=== PATIENT | female | born 1945 | race Caucasian/White ===

== ENCOUNTER 2016-08-24 10:21 | Inpatient (IN) | payer BC, MEDICARE ==
--- NOTE | 2016-08-24 10:52 | EDM.PDOC ---
ED HPI NEURO - General Chief Complaint: Neurological Problem Stated Complaint: BLACKED OUT Time Seen by Provider: 08/24/16 10:51 Source of Information: Reports: Patient, Family History Limitations: Reports: No limitations - History of Present Illness INITIAL COMMENTS - FREE TEXT/NARRATIVE: 71-year-old female presents to the ED per family members. They were lasting contact with her about 1500 hours on Sunday, August 22. Phone calls yesterday and last night received no answer. He attended her home this morning and found her wedged between the dresser and the wall in a vary small space at which she was unable to get out of. It's unclear how long she may have been restrained or constrained within this area. She didn't recognize her daughters or granddaughter this morning when they arrive to help her out. She had lost control of her bladder her least her depends was wet but no stool. She's covered with bruises particularly her back in right upper chest remedied. No obvious injuries to her head. Patient has no recollection is what is happened to her when she may have fallen or passed out. She is nondiabetic. Bedside glucose is 127. She does appear to be volume depleted. She obeys all commands at this point time in all limbs are functioning normally with no sign of focal neurological deficit. Symptom Onset Date: 08/22/16 (Unclear but seems and seems to be something happened after 1500 hours August 22.) Timing/Duration: Reports: Hour(s):, Unsure Location (Neuro Complaint): Reports: other (No focal neurological deficit.) Quality (Neuro Complaint): Reports: weakness, altered gait. Denies: numbness, tingling, altered sensation (Can hardly weight bear because of pain in her hips. ), altered speech Severity: moderate Improves with: Reports: None Worsens with: Reports: None Context, General: Reports: Trauma (Unclear which maybe 8 or drank last.). Denies: Activity, Exercise, Lifting, Sick contact Associated Symptoms: Reports: confusion, weakness, malaise, rash (Bruises and abrasions.). 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: Other (see below) (No) - Related Data Allergies/ADRs: Allergies Allergy/AdvReac Type Severity Reaction Status Date / Time No Known Allergies Allergy Verified 08/24/16 10:35 Home Meds: Home Meds Hydrochlorothiazide 12.5 mg PO DAILY 09/09/14 [History] Sertraline [Zoloft] 50 mg PO DAILY 09/09/14 [History] Simvastatin [Zocor] 5 mg PO BEDTIME 09/09/14 [History] Past Medical History Cardiovascular History: Reports: High cholesterol, Hypertension Psychiatric History: Reports: Anxiety, Depression - Past Surgical History HEENT Surgical History: Reports: Cataract surgery Female Surgical History: Reports: section Social & Family History - Tobacco Use Smoking Status *Q: Never Smoker Second Hand Smoke Exposure: No - Alcohol Use Days Per Week of Alcohol Use: 0 - Recreational Drug Use Recreational Drug Use: No - Living Situation & Occupation Living situation: Reports: , alone Occupation: retired ED ROS GENERAL - Review of Systems Review Of Systems: See Below Constitutional: Reports: weakness, fatigue. Denies: fever, chills, malaise, weight loss HEENT: Reports: No symptoms Respiratory: Reports: No Symptoms Cardiovascular: Reports: No symptoms Endocrine: Reports: no symptoms GI/Abdominal: Reports: No symptoms : Reports: frequency Musculoskeletal: Reports: back pain, joint pain (Hip pain and knee pain. Also pain in her left shoulder.) Skin: Reports: bruising (Multiple bruises particularly right elbow right proximal lateral humerus upper mid right back left shoulder posteriorly. Right lateral thigh proximally. With abrasions and contusions compatible with a fall in a closed area.) Neurological: Reports: Confusion, Dizziness (She is orthostatic on examination) , Difficulty Walking, Weakness, Gait Disturbance (Doesn't walk as well as normal today since the her family rescued her from her fall.). Denies: Headache , Paresthesia, Pre-Existing Deficit, Seizure, Syncope, Tremors, Trouble Speaking , Change in Speech Psychiatric: Reports: Anxiety, Depression Hematologic/Lymphatic: Reports: no symptoms Immunologic: Reports: no symptoms ED EXAM, NEURO - Physical Exam Exam: See Below Exam Limited By: Other (At present she is not exhibiting any focal neurological deficit. She obeys all commands. She just has an absence of what has happened to her how long she was stopped in between a dresser in the wall. Peers as she may have suffered a prolonged period of unresponsiveness from a fall.) General Appearance: alert, mild distress, other (She has multiple bruises and abrasions to her back and shift posterior shoulders right arm right leg compatible with a fall in enclosed space.) Eye Exam: bilateral eye: normal inspection Ears: normal TMs Throat/Mouth: Other (Tongue is very dry and coated.) Head Exam: atraumatic, normocephalic, other (No palpable hematomas or bruises to the head or neck or scalp or face.) Neck: normal inspection, supple, non-tender, full range of motion, other. No: lymphadenopathy (L), lymphadenopathy (R) Respiratory/Chest: no respiratory distress, lungs clear, normal breath sounds, no accessory muscle use, other (Impression of her ribs causes no pain or discomfort.) Cardiovascular: normal peripheral pulses, regular rate, rhythm, no edema, no gallop, no murmur, no rub GI/Abdominal: normal bowel sounds, soft, non tender, no organomegaly Neurological: alert, normal mood/affect, normal dorsiflexion, CN II-XII intact, difficulty walking (Due to pain in her hips and knees.). No: normal gait, oriented x 3 (Not oriented to time.), Babinski, straight leg raise (L), straight leg raise (R), saddle anesthesia DTR: 0: achilles (R), achilles (L), 1+: patella (R), patella (L) Back Exam: other (Large abrasion contusion and erythema on the right mid back over the distal aspect of the shoulder blade. There is a bruise on the posterior aspect of the left shoulder which appears to be a day or 2 old.) Extremities: other (Bruising right proximal humerus laterally and along her right elbow. Abrasion along the right posterior proximal lateral thigh.) Psychiatric: normal affect, normal mood Skin Exam: Warm, Dry, Intact, Normal color, No rash EKG INTERPRETATION EKG Date: 08/24/16 Time: 11:00 Rhythm: NSR Rate (beats/min): 74 [place]: LAD-left axis deviation (Findings 3.) P-wave: present QRS: normal ST-T: normal QT: prolonged (Minimally prolonged.) EKG Interpretation Comments: No signs of ischemia. Course - Vital Signs Last Recorded V/S: Last Vital Signs Temp 37.2 C 08/24/16 10:31 Pulse 78 08/24/16 10:31 Resp 16 08/24/16 10:31 BP 115/92 H 08/24/16 10:31 Pulse Ox 98 08/24/16 10:31 Orthostatic Blood Pressure [ 101/52 Standing] Orthostatic Blood Pressure [ 124/99 Sitting] Orthostatic Blood Pressure [ 124/64 Supine] - Orders/Labs/Meds Orders: Active Orders 24 hr Category Date Time Status Admission Status [Patient Status] [ADT] Routine ADT 08/24/16 13:15 Active Blood Glucose Check, Bedside [RC] ONETIME Care 08/24/16 10:49 Active EKG Documentation Completion [RC] STAT Care 08/24/16 10:48 Active Orthostatic Vital Signs [RC] ASDIRECTED Care 08/24/16 10:49 Active Oxygen Therapy [RC] ASDIRECTED Care 08/24/16 10:49 Active Chest 1V Frontal [CR] Stat Exams 08/24/16 10:48 Taken CULTURE BLOOD [BC] Stat Lab 08/24/16 11:40 Received CULTURE BLOOD [BC] Stat Lab 08/24/16 12:05 Received Dextrose 5%-0.9% NaCl [Dextrose 5%-Normal Saline] 1,000 Med 08/24/16 11:00 Active ml IV ASDIRECTED Blood Culture x2 Reflex Set [OM.PC] Stat Oth 08/24/16 10:49 Ordered Medication Orders Dextrose/Sodium Chloride (Dextrose 5%-Normal Saline) 1,000 mls @ 999 mls/hr IV ASDIRECTED FRANKLIN Last Admin: 08/24/16 11:00 Dose: 999 mls/hr Labs: Laboratory Tests 08/24/16 08/24/16 08/24/16 Range/Units 11:00 11:00 11:00 WBC 12.37 H (3.98-10.04) K/mm3 RBC 5.05 (3.98-5.22) M/mm3 Hgb 14.6 (11.2-15.7) gm/L Hct 44.4 (34.1-44.9) % MCV 87.9 (79.4-94.8) fl MCH 28.9 (25.6-32.2) pg MCHC 32.9 (32.2-35.5) g/dl RDW Std Deviation 45.3 (36.4-46.3) fL Plt Count 316 (182-369) K/mm3 MPV 10.2 (9.4-12.3) fl Neutrophils % (Manual) 67 H (40-60) % Band Neutrophils % 1 (0-10) % Lymphocytes % (Manual) 22 (20-40) % Atypical Lymphs % 0 % Monocytes % (Manual) 10 (2-10) % Eosinophils % (Manual) 0 L (0.7-5.8) % Basophils % (Manual) 0 L (0.1-1.2) Platelet Estimate Adequate RBC Morph Comment Normal PT 10.8 (8.0-13.0) SECONDS INR 0.99 Sodium 138 (136-145) mEq/L Potassium 3.9 (3.5-5.1) mEq/L Chloride 101 (98-107) mEq/L Carbon Dioxide 26 (21-32) mEq/L Anion Gap 14.9 (5-15) BUN 28 H (7-18) mg/dL Creatinine 1.1 H (0.55-1.02) mg/dL Est Cr Clr Drug Dosing 33.21 mL/min Estimated GFR (MDRD) 49 (>60) mL/min BUN/Creatinine Ratio 25.5 H (14-18) Glucose 133 H (83-115) mg/dL Calcium 9.3 (8.5-10.1) mg/dL Magnesium 2.1 (1.8-2.4) mg/dl Total Bilirubin 0.7 (0.2-1.0) mg/dL AST 127 H (15-37) U/L ALT 58 (14-59) U/L Alkaline Phosphatase 70 (46-116) U/L Creatine Kinase 4045 H (26-192) U/L CK-MB (CK-2) 22.8 H (0-3.6) ng/ml Troponin I < 0.017 (0.00-0.056) ng/mL C-Reactive Protein 5.9 H* (<1.0) mg/dL B-Natriuretic Peptide (0-100) pg/mL Total Protein 8.6 H (6.4-8.2) g/dl Albumin 4.1 (3.4-5.0) g/dl Globulin 4.5 gm/dL Albumin/Globulin Ratio 0.9 L (1-2) Urine Color (Yellow) Urine Appearance (Clear) Urine pH (5.0-8.0) Ur Specific [place] (1.005-1.030) Urine Protein (Negative) Urine Glucose (UA) (Negative) Urine Ketones (Negative) Urine Occult Blood (Negative) Urine Nitrite (Negative) Urine Bilirubin (Negative) Urine Urobilinogen (0.2-1.0) Ur Leukocyte Esterase (Negative) Urine RBC (0-5) /hpf Urine WBC (0-5) /hpf Ur Epithelial Cells (0-5) /hpf Urine Bacteria (FEW) /hpf Urine Mucus (FEW) /hpf 08/24/16 08/24/16 Range/Units 11:00 11:59 WBC (3.98-10.04) K/mm3 RBC (3.98-5.22) M/mm3 Hgb (11.2-15.7) gm/L Hct (34.1-44.9) % MCV (79.4-94.8) fl MCH (25.6-32.2) pg MCHC (32.2-35.5) g/dl RDW Std Deviation (36.4-46.3) fL Plt Count (182-369) K/mm3 MPV (9.4-12.3) fl Neutrophils % (Manual) (40-60) % Band Neutrophils % (0-10) % Lymphocytes % (Manual) (20-40) % Atypical Lymphs % % Monocytes % (Manual) (2-10) % Eosinophils % (Manual) (0.7-5.8) % Basophils % (Manual) (0.1-1.2) Platelet Estimate RBC Morph Comment PT (8.0-13.0) SECONDS INR Sodium (136-145) mEq/L Potassium (3.5-5.1) mEq/L Chloride (98-107) mEq/L Carbon Dioxide (21-32) mEq/L Anion Gap (5-15) BUN (7-18) mg/dL Creatinine (0.55-1.02) mg/dL Est Cr Clr Drug Dosing mL/min Estimated GFR (MDRD) (>60) mL/min BUN/Creatinine Ratio (14-18) Glucose (83-115) mg/dL Calcium (8.5-10.1) mg/dL Magnesium (1.8-2.4) mg/dl Total Bilirubin (0.2-1.0) mg/dL AST (15-37) U/L ALT (14-59) U/L Alkaline Phosphatase (46-116) U/L Creatine Kinase (26-192) U/L CK-MB (CK-2) (0-3.6) ng/ml Troponin I (0.00-0.056) ng/mL C-Reactive Protein (<1.0) mg/dL B-Natriuretic Peptide 53 (0-100) pg/mL Total Protein (6.4-8.2) g/dl Albumin (3.4-5.0) g/dl Globulin gm/dL Albumin/Globulin Ratio (1-2) Urine Color Yellow (Yellow) Urine Appearance Clear (Clear) Urine pH 6.0 (5.0-8.0) Ur Specific [place] 1.025 (1.005-1.030) Urine Protein 1+ H (Negative) Urine Glucose (UA) Negative (Negative) Urine Ketones Trace H (Negative) Urine Occult Blood Trace-lysed H (Negative) Urine Nitrite Negative (Negative) Urine Bilirubin Negative (Negative) Urine Urobilinogen 0.2 (0.2-1.0) Ur Leukocyte Esterase Negative (Negative) Urine RBC 5-10 H (0-5) /hpf Urine WBC 0-5 (0-5) /hpf Ur Epithelial Cells 0-5 (0-5) /hpf Urine Bacteria Few (FEW) /hpf Urine Mucus Not seen (FEW) /hpf Meds: Medications Generic Name Dose Route Start Last Admin Trade Name Freq PRN Reason Stop Dose Admin Dextrose/Sodium Chloride 1,000 mls @ 999 mls/hr 08/24/16 11:00 08/24/16 11:00 Dextrose 5%-Normal Saline IV 999 mls/hr ASDIRECTED FRANKLIN Administration - Radiology Interpretation Free Text/Narrative:: 71-year-old female presents the ED accompanied by daughter and granddaughter. They identify that she was wedged between a dresser and a wall in her home for an unknown length of time. The last time and he wants puncture was around 1500 hours August 22. Phone calls all day yesterday met with known cancer as did phone calls last evening. This suggests she has been in this odd position wedged between a dresser the wall for at least 24 hours. She was found to have what her depends significantly but had no loss control of her bowel. She was very confused when her granddaughter and daughter approached her she did know who they were. She has no recollection of falling or how she got wedged between a dresser in the wall. On exam she is moving all limbs and exhibits no signs of focal neurological deficit. She obeys all commands. She is going to put it and is orthostatic. As far as identify she has no change in recent medications. Her current bedside glucose was 127. Plan IV D5 normal saline at open. ECG reveals sinus rhythm at 73 per minute with no abnormalities are detected to suggest ischemia. Routine lab work will be done to include a CT scan of her brain and a chest x-ray. - Re-Assessments/Exams Free Text/Narrative Re-Assessment/Exam: 08/24/16 11:14 T. piece done orthostatically show lying one 2464 with a heart of 74 sitting one 2499 with a heart rate of 86 and standing was 101/52 with heart rate of 94. IE she is volume depleted or orthostatic. 08/24/16 11:31 CT of the brain reveals advanced degenerative changes with marked small vessel vascular changes in both basal ganglia. Lateral ventricles are enlarged with some encephalomalacia at the anterior horns. No discrete evidence of a lacunar infarct is identified. No intracranial bleeding. There is no evidence of head trauma with swelling or fracture. Chest x-ray was within normal limits showing clear lung peterson cardiac silhouette also normal. 08/24/16 12:11 white count is 12.37 with 67% it fills 1% bands. Hemoglobin is 14.6 hematocrit is 44.4. Platelets are 316,000. Coags are normal. Chemistry shows a sodium of 138 potassium of 3.9. Cord 11 bicarbonate 26. Anion gap is 14.9. BUN is 28. Creatinine is 1.1 EGFR is 49. Glucose is 133 AST is mildly elevated 127 ALT is 58. Room 0.7. Total CPK is elevated at 4045. CK-MB fraction is 22.8 troponin is less than 0.017 CRP is elevated at 5.9. Urinalysis of course is not yet available she has not voided yet. 08/24/16 13:18 waiting for urinalysis as she has not voided. She has a mild leukocytosis and a mildly elevated CRP at 5.9 with no obvious infected process appreciated on her chest x-ray. She was afebrile. Spoke with Dr. Maurer composition tile layer hospitalist the patient will be admitted to the [facility] surgery floor on telemetry. 08/24/16 13:28 urinalysis is back and shows 2+ red cells on the dip but no signs of infection. Departure - Departure Time of Disposition: 13:29 Disposition: Admitted As Inpatient 65 Condition: poor Clinical Impression: Orthostatic syncope, Fall as cause of accidental injury at home as place of occurrence, Contusion, multiple sites, Leukocytosis, unspecified Traumatic rhabdomyolysis Qualifiers: Encounter type: initial encounter Qualified Code(s): T79.6XXA - Traumatic ischemia of muscle, initial encounter Alzheimers disease Qualifiers: Alzheimer's disease onset: unspecified onset Dementia behavioral disturbance: without behavioral disturbance Qualified Code(s): G30.9 - Alzheimer's disease, unspecified; F02.80 - Dementia in other diseases classified elsewhere without behavioral disturbance Forms: ED Department Discharge - My Orders Last 24 Hours: My Active Orders 08/24/16 10:48 EKG Documentation Completion [RC] STAT Chest 1V Frontal [CR] Stat 08/24/16 10:49 Blood Glucose Check, Bedside [RC] ONETIME Orthostatic Vital Signs [RC] ASDIRECTED Oxygen Therapy [RC] ASDIRECTED Blood Culture x2 Reflex Set [OM.PC] Stat 08/24/16 11:00 Dextrose 5%-0.9% NaCl [Dextrose 5%-Normal Saline] 1,000 ml IV ASDIRECTED 08/24/16 11:40 CULTURE BLOOD [BC] Stat 08/24/16 12:05 CULTURE BLOOD [BC] Stat 08/24/16 13:15 Admission Status [Patient Status] [ADT] Routine - Assessment/Plan Last 24 Hours: My Active Orders 08/24/16 10:48 EKG Documentation Completion [RC] STAT Chest 1V Frontal [CR] Stat 08/24/16 10:49 Blood Glucose Check, Bedside [RC] ONETIME Orthostatic Vital Signs [RC] ASDIRECTED Oxygen Therapy [RC] ASDIRECTED Blood Culture x2 Reflex Set [OM.PC] Stat 08/24/16 11:00 Dextrose 5%-0.9% NaCl [Dextrose 5%-Normal Saline] 1,000 ml IV ASDIRECTED 08/24/16 11:40 CULTURE BLOOD [BC] Stat 08/24/16 12:05 CULTURE BLOOD [BC] Stat 08/24/16 13:15 Admission Status [Patient Status] [ADT] Routine
[2016-08-24] MEDS ORDERED: Dextrose 5%-0.9% NaCl 1,000 ML IV SCH (11:00)
--- NOTE | 2016-08-24 11:41 | CT ---
Head CT Technique: Multiple axial sections through the brain were obtained. Intravenous contrast was utilized. Comparison: Previous head CT exam of 09/09/14. 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 Ventricles along with basal cisterns and sulci over convexities are mildly to moderately prominent. Old lacunar infarcts are also seen within the right basal ganglia. Minimal diminished density is noted within the periventricular white matter compatible with small vessel ischemic demyelination change. No other abnormal parenchymal densities are seen. No evidence of intracranial hemorrhage. No midline shift or mass effect is seen. Bone window settings were reviewed which shows the visualized sinuses to appear clear. No acute calvarial abnormality is seen. Impression: 1. Senescent change as described above which appears stable from prior head CT exam. 2. No acute intracranial abnormality is appreciated. Diagnostic code #2
--- NOTE | 2016-08-24 13:46 | CR ---
Chest: Portable view of the chest was obtained. Comparison: Previous rib exam partially showing the chest dated 01/24/12. Heart size is normal. Mild tortuosity of the thoracic aorta is seen. Lungs are clear with no acute infiltrates. Scoliosis is present within the spine with mild scattered degenerative endplate osteophytes. Impression: 1. Incidental findings. Nothing acute is identified on portable chest x-ray. Diagnostic code #2
--- NOTE | 2016-08-24 14:42 | PCM.HP ---
H&P History of Present Illness - General Date of Service: 08/24/16 Admit Problem/Dx: Admission Diagnosis/Problem Admission Diagnosis/Problem Syncope Source of Information: Family, Provider History Limitations: Reports: No limitations - History of Present Illness Initial Comments - Free Text/Narative: 71 year old female who was last in contact with her family 08/22/16 before 1500 hour. They had attempetd to contact her by phone but were unsuccessful. She had reportedly loss consciousness, and could not provide details. The patient was found wedged between a dresser and a wall. At the time she was found, she was unable to recognize her daughters/granddaughters. She was orthostatic upon evaluation in the ED, and could recall the events which preceded her fall. There was no head trauma, change in vision, difficulty walking. Lab results are unremarkable; neuro exam is non focal. Onset of Symptoms: Reports: unknown/unsure Symptom Onset Date: 08/23/16 Symptom Onset Time: 15:00 (Last known contact) Duration of Symptoms: Reports: Hour(s): Location: Reports: generalized Severity: moderate Improves with: Reports: None Worsens with: Reports: None Associated Symptoms: Reports: confusion, malaise, weakness - Related Data Allergies/Adverse Reactions: Allergies Allergy/AdvReac Type Severity Reaction Status Date / Time No Known Allergies Allergy Verified 08/24/16 16:20 Home Medications: Home Meds Hydrochlorothiazide 12.5 mg PO DAILY 09/09/14 [History] Sertraline [Zoloft] 50 mg PO DAILY 09/09/14 [History] Simvastatin [Zocor] 5 mg PO BEDTIME 09/09/14 [History] Past Medical History Cardiovascular History: Reports: High cholesterol, Hypertension Psychiatric History: Reports: Anxiety, Depression - Past Surgical History HEENT Surgical History: Reports: Cataract surgery Female Surgical History: Reports: section Social & Family History - Tobacco Use Smoking Status *Q: Never Smoker Second Hand Smoke Exposure: No - Alcohol Use Days Per Week of Alcohol Use: 0 - Recreational Drug Use Recreational Drug Use: No - Living Situation & Occupation Living situation: Reports: , alone Occupation: retired [employer] Review of Systems - Review of Systems: Review Of Systems: See Below General: Reports: malaise, weakness HEENT: Reports: no symptoms Pulmonary: Reports: No Symptoms Cardiovascular: Reports: no symptoms Gastrointestinal: Reports: No symptoms Genitourinary: Reports: no symptoms Musculoskeletal: Reports: back pain, other (hip, bilateral) Skin: Reports: bruising (generalized, back) Psychiatric: Reports: confusion Neurological: Reports: Confusion, Dizziness, Difficulty Walking, Weakness, Gait Disturbance Hematologic/Lymphatic: Reports: no symptoms Immunologic: Reports: no symptoms Exam - Exam Exam: See Below - Vital Signs Vital Signs: Last Vital Signs Temp 37.2 C 08/24/16 10:31 Pulse 74 08/24/16 14:00 Resp 16 08/24/16 14:00 BP 115/92 H 08/24/16 10:31 Pulse Ox 98 08/24/16 14:00 Weight: 63.503 kg - Exam Quality Assessment: DVT prophylaxis General: alert, oriented, cooperative HEENT: EOMI, Nares patent, Normal nasal septum, Posterior pharynx clear, Pupils equal, Pupils reactive Neck: supple, trachea midline Lungs: Normal respiratory effort Cardiovascular: regular rate, regular rhythm Abdomen: normal bowel sounds, soft (Female) Exam: Deferred Rectal (Female) Exam: Deferred Back Exam: normal inspection Extremities: normal inspection, normal pulses, other (RLE bruising and abrasions ) Peripheral Pulses: 2+: carotid (L), carotid (R) Skin: warm, dry Neurological: cranial nerves intact Neuro Extensive - Mental Status: alert, nl response to commands Neuro Extensive - Motor, Sensory, Reflexes: CN II-XII intact Psychiatric: alert, normal affect, normal mood - Patient Data Result Diagrams: 08/25/16 05:28 08/25/16 05:28 *Q Meaningful Use (ADM) - VTE *Q VTE Criteria *Q: - Stroke *Q Stroke Criteria *Q: - AMI *Q AMI Criteria *Q: - Problem List (1) Alzheimers disease SNOMED Code(s): 58877281 ICD Code: G30.9 - ALZHEIMER'S DISEASE, UNSPECIFIED Status: Acute Current Visit: Yes Qualifiers: Alzheimer's disease onset: unspecified onset Dementia behavioral disturbance: without behavioral disturbance Qualified Code(s): G30.9 - Alzheimer's disease, unspecified; F02.80 - Dementia in other diseases classified elsewhere without behavioral disturbance (2) Contusion, multiple sites SNOMED Code(s): 346940552 ICD Code: T14.8 - OTHER INJURY OF UNSPECIFIED BODY REGION Status: Acute Current Visit: Yes Problem List Initiated/Reviewed/Updated: Yes Orders Last 24hrs: Active Orders 24 hr Category Date Time Status Nursing Bedside Swallow Screen [RC] ASDIRECTED Care 08/24/16 14:38 Active Clear Liquid Diet [DIET] Diet 08/24/16 Dinner Active Sodium Chloride 0.9% [Normal Saline] 1,000 ml Med 08/24/16 14:45 Ordered IV ASDIRECTED Medication Orders Dextrose/Sodium Chloride (Dextrose 5%-Normal Saline) 1,000 mls @ 999 mls/hr IV ASDIRECTED FRANKLIN Last Admin: 08/24/16 11:00 Dose: 999 mls/hr Sodium Chloride (Normal Saline) 1,000 mls @ 100 mls/hr IV ASDIRECTED FRANKLIN Assessment/Plan Comment:: Impression: AMS (unwitnessed), s/p (apparent) LOC No obvious seizure activity; no recent head trauma S/P Fall, change in gait Query TIA Dehydration Rhabdomyolysis Chronic HTN Hyperlipidemia Plan: Cardiac work up for CAD/ischemia Infectious work up Neuro checks with vital signs 2D echo/carotid duplex Repeat orthostatics Clear liquids after bedside swallow eval. IVF Daily labs DVT/GI prophylaxis
[2016-08-24] MEDS: Sodium Chloride 0.9% 1,000 ML IV SCH ×2 (15:01→23:27)
[2016-08-24] MEDS: Simvastatin 10 MG Tab PO SCH (20:27)
[2016-08-25] MEDS: Enoxaparin 40 MG/0.4 ML Syringe SUBCUT SCH (08:19)
[2016-08-25] MEDS: Sodium Chloride 0.9% 1,000 ML IV SCH (08:30)
[2016-08-25] MEDS ORDERED: Potassium Chloride 20 MEQ Tab.ER PO ONE (09:00)
[2016-08-25] MEDS ORDERED: Sertraline 50 MG Tab PO SCH (09:00)
--- NOTE | 2016-08-25 09:40 | PCM.PN ---
- General Info Date of Service: 08/25/16 Functional Status: Reports: tolerating diet, ambulating, urinating - Review of Systems General: Reports: No Symptoms HEENT: Reports: no symptoms Pulmonary: Reports: no symptoms Cardiovascular: Reports: No Symptoms Gastrointestinal: Reports: No symptoms Genitourinary: Reports: no symptoms Musculoskeletal: Reports: no symptoms Skin: Reports: no symptoms Neurological: Reports: No Symptoms Psychiatric: Reports: no symptoms - Patient Data Vitals - most recent: Last Vital Signs Temp 37.2 C 08/25/16 08:27 Pulse 71 08/25/16 08:27 Resp 12 08/25/16 08:27 BP 110/59 L 08/25/16 08:27 Pulse Ox 92 L 08/25/16 08:27 Orthostatic Blood Pressure [ 97/79 Standing] Orthostatic Blood Pressure [ 128/63 Sitting] Orthostatic Blood Pressure [ 102/49 Supine] Weight - most recent: 64.138 kg I&O - last 24 hours: Intake & Output 08/24/16 08/25/16 08/25/16 22:59 06:59 14:59 Intake Total 1280 1842 Output Total 1050 Balance 1280 792 Lab Results last 24 hrs: Laboratory Results - last 24 hr 08/24/16 08/24/16 08/25/16 Range/Units 20:18 21:39 05:28 WBC (3.98-10.04) K/mm3 RBC (3.98-5.22) M/mm3 Hgb (11.2-15.7) gm/L Hct (34.1-44.9) % MCV (79.4-94.8) fl MCH (25.6-32.2) pg MCHC (32.2-35.5) g/dl RDW Std Deviation (36.4-46.3) fL Plt Count (182-369) K/mm3 MPV (9.4-12.3) fl Neut % (Auto) (34.0-71.1) % Lymph % (Auto) (19.3-51.7) % [place] % (Auto) (4.7-12.5) % Eos % (Auto) (0.7-5.8) Baso % (Auto) (0.1-1.2) % Neut # (Auto) (1.56-6.13) K/mm3 Lymph # (Auto) (1.18-3.74) K/mm3 [place] # (Auto) (0.24-0.36) K/mm3 Eos # (Auto) (0.04-0.36) K/mm3 Baso # (Auto) (0.01-0.08) K/mm3 Sodium 145 (136-145) mEq/L Potassium 3.3 L (3.5-5.1) mEq/L Chloride 113 H (98-107) mEq/L Carbon Dioxide 23 (21-32) mEq/L Anion Gap 12.3 (5-15) BUN 16 (7-18) mg/dL Creatinine 0.9 (0.55-1.02) mg/dL Est Cr Clr Drug Dosing 40.58 mL/min Estimated GFR (MDRD) > 60 (>60) mL/min BUN/Creatinine Ratio 17.8 (14-18) Glucose 98 (83-115) mg/dL POC Glucose 96 (83-110) mg/dL Calcium 8.0 L (8.5-10.1) mg/dL Magnesium 2.0 (1.8-2.4) mg/dl Creatine Kinase 2266 H (26-192) U/L Troponin I 0.017 < 0.017 (0.00-0.056) ng/mL C-Reactive Protein 3.3 H* (<1.0) mg/dL Triglycerides 88 (<150) mg/dL Cholesterol 120 (<200) mg/dL LDL Cholesterol Direct 54 (<100) mg/dL HDL Cholesterol 51.0 (40-59) mg/dL Mycoplasma pneumon IgM Negative (NEGATIVE) 08/25/16 08/25/16 Range/Units 05:28 07:25 WBC 8.15 (3.98-10.04) K/mm3 RBC 4.16 (3.98-5.22) M/mm3 Hgb 12.1 (11.2-15.7) gm/L Hct 37.5 (34.1-44.9) % MCV 90.1 (79.4-94.8) fl MCH 29.1 (25.6-32.2) pg MCHC 32.3 (32.2-35.5) g/dl RDW Std Deviation 46.4 H (36.4-46.3) fL Plt Count 221 (182-369) K/mm3 MPV 10.6 (9.4-12.3) fl Neut % (Auto) 44.5 (34.0-71.1) % Lymph % (Auto) 43.1 (19.3-51.7) % [place] % (Auto) 9.7 (4.7-12.5) % Eos % (Auto) 2.2 (0.7-5.8) Baso % (Auto) 0.4 (0.1-1.2) % Neut # (Auto) 3.63 (1.56-6.13) K/mm3 Lymph # (Auto) 3.51 (1.18-3.74) K/mm3 [place] # (Auto) 0.79 H (0.24-0.36) K/mm3 Eos # (Auto) 0.18 (0.04-0.36) K/mm3 Baso # (Auto) 0.03 (0.01-0.08) K/mm3 Sodium (136-145) mEq/L Potassium (3.5-5.1) mEq/L Chloride (98-107) mEq/L Carbon Dioxide (21-32) mEq/L Anion Gap (5-15) BUN (7-18) mg/dL Creatinine (0.55-1.02) mg/dL Est Cr Clr Drug Dosing mL/min Estimated GFR (MDRD) (>60) mL/min BUN/Creatinine Ratio (14-18) Glucose (83-115) mg/dL POC Glucose 87 (83-110) mg/dL Calcium (8.5-10.1) mg/dL Magnesium (1.8-2.4) mg/dl Creatine Kinase (26-192) U/L Troponin I (0.00-0.056) ng/mL C-Reactive Protein (<1.0) mg/dL Triglycerides (<150) mg/dL Cholesterol (<200) mg/dL LDL Cholesterol Direct (<100) mg/dL HDL Cholesterol (40-59) mg/dL Mycoplasma pneumon IgM (NEGATIVE) Med Orders - Current: Current Medications Enoxaparin Sodium (Lovenox) 40 mg SUBCUT DAILY [facility] Last Admin: 08/25/16 08:19 Dose: 40 mg Sodium Chloride (Normal Saline) 1,000 mls @ 100 mls/hr IV ASDIRECTED [facility] Last Admin: 08/25/16 08:30 Dose: 100 mls/hr Sertraline HCl (Zoloft) 50 mg PO DAILY [facility] Last Admin: 08/25/16 08:19 Dose: 50 mg Simvastatin (Zocor) 5 mg PO BEDTIME [facility] Last Admin: 08/24/16 20:27 Dose: 5 mg Discontinued Medications Dextrose/Sodium Chloride (Dextrose 5%-Normal Saline) 1,000 mls @ 999 mls/hr IV ASDIRECTED [facility] Last Admin: 08/24/16 11:00 Dose: 999 mls/hr Potassium Chloride (Klor-Con M20) 40 meq PO ONETIME ONE Stop: 08/25/16 09:01 Last Admin: 08/25/16 08:19 Dose: 40 meq - Exam Quality Assessment: DVT prophylaxis General: alert, oriented, cooperative, no acute distress HEENT: Pupils equal, Pupils reactive, EOMI Neck: supple, trachea midline Lungs: Normal respiratory effort Cardiovascular: Regular Rate Abdomen: bowel sounds present, soft, no tenderness, no distension (Female) Exam: Deferred Back Exam: normal inspection Extremities: normal pulses Skin: warm Neurological: no new focal deficit Psy/Mental Status: alert, normal affect, normal mood - Problem List & Annotations (1) Alzheimers disease SNOMED Code(s): 33342897 Code(s): G30.9 - ALZHEIMER'S DISEASE, UNSPECIFIED Status: Acute Current Visit: Yes Qualifiers: Alzheimer's disease onset: unspecified onset Dementia behavioral disturbance: without behavioral disturbance Qualified Code(s): G30.9 - Alzheimer's disease, unspecified; F02.80 - Dementia in other diseases classified elsewhere without behavioral disturbance (2) Contusion, multiple sites SNOMED Code(s): 384010366 Code(s): T14.8 - OTHER INJURY OF UNSPECIFIED BODY REGION Status: Acute Current Visit: Yes - Problem List Review Problem List Initiated/Reviewed/Updated: Yes - My Orders Last 24 Hours: My Active Orders 08/24/16 11:59 STREP PNEUMONIAE ANTIGEN [MREF] Routine 08/24/16 14:38 Nursing Bedside Swallow Screen [RC] .PRN 08/24/16 14:45 Sodium Chloride 0.9% [Normal Saline] 1,000 ml IV ASDIRECTED 08/24/16 15:56 Vital Signs [RC] Q4HR Code Status [Resuscitation Status] Routine 08/24/16 16:00 Neurovascular Check [RC] BID 08/24/16 16:11 Antiembolic Devices [RC] DAILY GUILLERMO Hose [Antiembolic Hose] [OM.PC] Routine 08/24/16 18:20 Blood Glucose Check, Bedside [RC] 0700,2100 08/24/16 21:00 Simvastatin [Zocor] 5 mg PO BEDTIME 08/24/16 Dinner Clear Liquid Diet [DIET] 08/25/16 01:48 Ambulate [RC] BID 08/25/16 01:49 Up With Assistance [RC] CONTINUOUS 08/25/16 04:24 RESPIRATORY PANEL BY PCR [MREF] Routine 08/25/16 09:00 EKG 12 Lead [EKG Documentation Completion] [RC] ROUTINE Consult to Physical Therapy [PT Evaluation and Treatment] [CONS] Routine Enoxaparin [Lovenox] 40 mg SUBCUT DAILY Sertraline [Zoloft] 50 mg PO DAILY 08/25/16 10:00 Consult to Occupational Therapy [OT Evaluation and Treatment] [CONS] Routine Consult to Inspection Clerk [CONS] Routine 08/26/16 05:00 BASIC METABOLIC PANEL,BMP [CHEM] DAILY CBC WITH AUTO DIFF [HEME] DAILY CPK [CREATINE KINASE,CK] [CHEM] DAILY CRP [C-REACTIVE PROTEIN] [CHEM] DAILY MAGNESIUM [CHEM] DAILY 08/26/16 09:00 CXR [Chest 2V] [CR] Routine 08/27/16 05:00 BASIC METABOLIC PANEL,BMP [CHEM] DAILY CBC WITH AUTO DIFF [HEME] DAILY CPK [CREATINE KINASE,CK] [CHEM] DAILY MAGNESIUM [CHEM] DAILY 08/28/16 05:00 CBC WITH AUTO DIFF [HEME] DAILY CPK [CREATINE KINASE,CK] [CHEM] DAILY - Plan Plan:: Impression: AMS (unwitnessed), s/p LOC No apparent seizure activity; no recent head trauma S/P Fall, change in gait Query TIA Doubt seizure Dehydration Rhabdomyolysis Chronic HTN Hyperlipidemia Plan: Cardiac work up for CAD/ischemia Infectious work up Neuro checks with vital signs 2D echo/carotid duplex Repeat orthostatics Clear liquids after bedside swallow eval. IVF Daily labs DVT/GI prophylaxis
--- NOTE | 2016-08-25 16:58 | US ---
Carotid ultrasound: Duplex and color flow imaging was obtained of the carotid arteries. Technologist's note: Technically difficult study due to patient's labored breathing and inability to stay awake No significant plaque is identified. Velocity measurements Right side: CCA has a peak systolic velocity of 1.32 m/s. ICA has a peak systolic velocity of 0.85 m/s and peak end-diastolic velocity is 0.24 m/s. ECA has a peak systolic velocity of 1.34 m/s. Vertebral artery has a peak systolic velocity of 0.56 m/s. ICA/CCA ratio is 0.65. Left side: CCA has a peak systolic velocity of 1.19 m/s. ICA has a peak systolic velocity of 1.50 m/s and peak end-diastolic velocity 0.32 m/s. ECA has a peak systolic velocity of 1.28 m/s. Vertebral artery has a peak systolic velocity of 0.91 m/s. ICA/CCA ratio is 1.3. Impression: 1. Elevated velocity measurement within the left internal carotid artery. Etiology for this is not identified. Velocity measurement correlates to a stenosis in the range of 50-79%. MR angiogram could be considered to further evaluate if patient's creatinine is normal. 2. Other velocity measurements are within normal limits. Diagnostic code #3
[2016-08-25] MEDS: Simvastatin 10 MG Tab PO SCH (21:28)
[2016-08-26] MEDS: Sertraline 25 MG Tab PO SCH (08:59)
[2016-08-26] MEDS: Enoxaparin 40 MG/0.4 ML Syringe SUBCUT SCH (08:59)
--- NOTE | 2016-08-26 16:24 | PCM.PN ---
- General Info Date of Service: 08/26/16 Functional Status: Reports: tolerating diet, ambulating, urinating - Review of Systems General: Reports: No Symptoms HEENT: Reports: no symptoms Pulmonary: Reports: no symptoms Cardiovascular: Reports: No Symptoms Gastrointestinal: Reports: No symptoms Genitourinary: Reports: no symptoms Musculoskeletal: Reports: no symptoms Skin: Reports: no symptoms Neurological: Reports: No Symptoms Psychiatric: Reports: no symptoms - Patient Data Vitals - most recent: Last Vital Signs Temp 37.0 C 08/26/16 16:21 Pulse 65 08/26/16 16:21 Resp 14 08/26/16 16:21 BP 117/67 08/26/16 16:21 Pulse Ox 93 L 08/26/16 16:21 Orthostatic Blood Pressure [ 97/79 Standing] Orthostatic Blood Pressure [ 128/63 Sitting] Orthostatic Blood Pressure [ 102/49 Supine] Weight - most recent: 64.138 kg I&O - last 24 hours: Intake & Output 08/26/16 08/26/16 08/26/16 06:59 14:59 22:59 Intake Total 500 Balance 500 Lab Results last 24 hrs: Laboratory Results - last 24 hr 08/25/16 08/26/16 08/26/16 Range/Units 21:27 05:07 05:07 WBC 6.78 (3.98-10.04) K/mm3 RBC 3.96 L (3.98-5.22) M/mm3 Hgb 11.6 (11.2-15.7) gm/L Hct 35.9 (34.1-44.9) % MCV 90.7 (79.4-94.8) fl MCH 29.3 (25.6-32.2) pg MCHC 32.3 (32.2-35.5) g/dl RDW Std Deviation 46.1 (36.4-46.3) fL Plt Count 208 (182-369) K/mm3 MPV 10.3 (9.4-12.3) fl Neut % (Auto) 38.7 (34.0-71.1) % Lymph % (Auto) 46.9 (19.3-51.7) % [place] % (Auto) 10.2 (4.7-12.5) % Eos % (Auto) 3.5 (0.7-5.8) Baso % (Auto) 0.4 (0.1-1.2) % Neut # (Auto) 2.62 (1.56-6.13) K/mm3 Lymph # (Auto) 3.18 (1.18-3.74) K/mm3 [place] # (Auto) 0.69 H (0.24-0.36) K/mm3 Eos # (Auto) 0.24 (0.04-0.36) K/mm3 Baso # (Auto) 0.03 (0.01-0.08) K/mm3 Sodium 146 H (136-145) mEq/L Potassium 4.0 (3.5-5.1) mEq/L Chloride 113 H (98-107) mEq/L Carbon Dioxide 23 (21-32) mEq/L Anion Gap 14.0 (5-15) BUN 13 (7-18) mg/dL Creatinine 0.8 (0.55-1.02) mg/dL Est Cr Clr Drug Dosing 45.66 mL/min Estimated GFR (MDRD) > 60 (>60) mL/min BUN/Creatinine Ratio 16.3 (14-18) Glucose 96 (83-115) mg/dL POC Glucose 95 (83-110) mg/dL Calcium 8.1 L (8.5-10.1) mg/dL Magnesium 2.1 (1.8-2.4) mg/dl Creatine Kinase 1297 H (26-192) U/L C-Reactive Protein 2.4 H* (<1.0) mg/dL 08/26/16 Range/Units 06:30 WBC (3.98-10.04) K/mm3 RBC (3.98-5.22) M/mm3 Hgb (11.2-15.7) gm/L Hct (34.1-44.9) % MCV (79.4-94.8) fl MCH (25.6-32.2) pg MCHC (32.2-35.5) g/dl RDW Std Deviation (36.4-46.3) fL Plt Count (182-369) K/mm3 MPV (9.4-12.3) fl Neut % (Auto) (34.0-71.1) % Lymph % (Auto) (19.3-51.7) % [place] % (Auto) (4.7-12.5) % Eos % (Auto) (0.7-5.8) Baso % (Auto) (0.1-1.2) % Neut # (Auto) (1.56-6.13) K/mm3 Lymph # (Auto) (1.18-3.74) K/mm3 [place] # (Auto) (0.24-0.36) K/mm3 Eos # (Auto) (0.04-0.36) K/mm3 Baso # (Auto) (0.01-0.08) K/mm3 Sodium (136-145) mEq/L Potassium (3.5-5.1) mEq/L Chloride (98-107) mEq/L Carbon Dioxide (21-32) mEq/L Anion Gap (5-15) BUN (7-18) mg/dL Creatinine (0.55-1.02) mg/dL Est Cr Clr Drug Dosing mL/min Estimated GFR (MDRD) (>60) mL/min BUN/Creatinine Ratio (14-18) Glucose (83-115) mg/dL POC Glucose 87 (83-110) mg/dL Calcium (8.5-10.1) mg/dL Magnesium (1.8-2.4) mg/dl Creatine Kinase (26-192) U/L C-Reactive Protein (<1.0) mg/dL [facility] Results last 24 hrs: Microbiology 08/25/16 04:24 Respiratory Virus Panel (PCR) ([facility]) - Final Nasopharyngeal Swab - Nare, Right Med Orders - Current: Current Medications Enoxaparin Sodium (Lovenox) 40 mg SUBCUT DAILY [facility] Last Admin: 08/26/16 08:59 Dose: 40 mg Sertraline HCl (Zoloft) 62.5 mg PO DAILY [facility] Last Admin: 08/26/16 08:59 Dose: 62.5 mg Simvastatin (Zocor) 5 mg PO BEDTIME [facility] Last Admin: 08/25/16 21:28 Dose: 5 mg Discontinued Medications Dextrose/Sodium Chloride (Dextrose 5%-Normal Saline) 1,000 mls @ 999 mls/hr IV ASDIRECTED [facility] Last Admin: 08/24/16 11:00 Dose: 999 mls/hr Sodium Chloride (Normal Saline) 1,000 mls @ 100 mls/hr IV ASDIRECTED [facility] Last Admin: 08/25/16 08:30 Dose: 100 mls/hr Potassium Chloride (Klor-Con M20) 40 meq PO ONETIME ONE Stop: 08/25/16 09:01 Last Admin: 08/25/16 08:19 Dose: 40 meq Sertraline HCl (Zoloft) 50 mg PO DAILY [facility] Last Admin: 08/25/16 08:19 Dose: 50 mg - Exam Quality Assessment: DVT prophylaxis General: alert, oriented, cooperative, no acute distress HEENT: Pupils equal, Pupils reactive, EOMI, Mucous membr. moist/pink Neck: supple, trachea midline Lungs: Normal respiratory effort Cardiovascular: Regular Rate, Regular Rhythm Abdomen: bowel sounds present, soft, no tenderness, no distension (Female) Exam: Deferred Back Exam: full range of motion Extremities: normal pulses Skin: warm Neurological: no new focal deficit Psy/Mental Status: alert, normal affect, normal mood - Problem List & Annotations (1) Alzheimers disease SNOMED Code(s): 72577860 Code(s): G30.9 - ALZHEIMER'S DISEASE, UNSPECIFIED Status: Acute Current Visit: Yes Qualifiers: Alzheimer's disease onset: unspecified onset Dementia behavioral disturbance: without behavioral disturbance Qualified Code(s): G30.9 - Alzheimer's disease, unspecified; F02.80 - Dementia in other diseases classified elsewhere without behavioral disturbance (2) Contusion, multiple sites SNOMED Code(s): 427930825 Code(s): T14.8 - OTHER INJURY OF UNSPECIFIED BODY REGION Status: Acute Current Visit: Yes - Problem List Review Problem List Initiated/Reviewed/Updated: Yes - My Orders Last 24 Hours: My Active Orders 08/25/16 Dinner Heart Healthy Diet [DIET] 08/26/16 09:00 CXR [Chest 2V] [CR] Routine 08/27/16 05:00 BASIC METABOLIC PANEL,BMP [CHEM] DAILY CBC WITH AUTO DIFF [HEME] DAILY CPK [CREATINE KINASE,CK] [CHEM] DAILY MAGNESIUM [CHEM] DAILY 08/28/16 05:00 CBC WITH AUTO DIFF [HEME] DAILY CPK [CREATINE KINASE,CK] [CHEM] DAILY - Plan Plan:: Impression: Query LOC, doubt No apparent seizure activity; no recent head trauma S/P Fall, change in gait Query TIA, abnormal carotid study with moderate L ICA stenosis Doubt seizure Dehydration, resolved. Rhabdomyolysis improving Chronic HTN Hyperlipidemia Plan: Cardiac work up for CAD/ischemia Neuro checks with vital signs 2D echo pending/carotid duplex abnormal IVF resume 08/27/16 MRA re: DION, left sided Daily labs DVT/GI prophylaxis
[2016-08-26] MEDS: Simvastatin 10 MG Tab PO SCH (21:32)
[2016-08-27] MEDS ORDERED: Sodium Chloride 0.9% 1,000 ML IV SCH (08:00)
[2016-08-27] MEDS: Sertraline 25 MG Tab PO SCH (09:06)
[2016-08-27] MEDS: Enoxaparin 40 MG/0.4 ML Syringe SUBCUT SCH (09:07)
--- NOTE | 2016-08-27 10:25 | PCM.PN ---
- General Info Date of Service: 08/27/16 Functional Status: Reports: tolerating diet, ambulating, urinating - Review of Systems General: Reports: No Symptoms HEENT: Reports: no symptoms Pulmonary: Reports: no symptoms Cardiovascular: Reports: No Symptoms Gastrointestinal: Reports: No symptoms Genitourinary: Reports: no symptoms Musculoskeletal: Reports: no symptoms Skin: Reports: no symptoms Neurological: Reports: No Symptoms Psychiatric: Reports: no symptoms - Patient Data Vitals - most recent: Last Vital Signs Temp 36.7 C 08/27/16 02:43 Pulse 72 08/27/16 02:43 Resp 15 08/27/16 02:43 BP 114/92 H 08/27/16 02:43 Pulse Ox 95 08/27/16 02:43 Orthostatic Blood Pressure [ 97/79 Standing] Orthostatic Blood Pressure [ 128/63 Sitting] Orthostatic Blood Pressure [ 102/49 Supine] Weight - most recent: 64.682 kg I&O - last 24 hours: Intake & Output 08/26/16 08/27/16 08/27/16 22:59 06:59 14:59 Intake Total 1460 125 Output Total 1850 1100 Balance -390 -975 Lab Results last 24 hrs: Laboratory Results - last 24 hr 08/26/16 08/27/16 08/27/16 Range/Units 22:59 05:28 05:28 WBC 6.42 (3.98-10.04) K/mm3 RBC 4.12 (3.98-5.22) M/mm3 Hgb 12.1 (11.2-15.7) gm/L Hct 37.0 (34.1-44.9) % MCV 89.8 (79.4-94.8) fl MCH 29.4 (25.6-32.2) pg MCHC 32.7 (32.2-35.5) g/dl RDW Std Deviation 44.3 (36.4-46.3) fL Plt Count 224 (182-369) K/mm3 MPV 10.0 (9.4-12.3) fl Neut % (Auto) 39.6 (34.0-71.1) % Lymph % (Auto) 46.4 (19.3-51.7) % [place] % (Auto) 9.5 (4.7-12.5) % Eos % (Auto) 3.7 (0.7-5.8) Baso % (Auto) 0.6 (0.1-1.2) % Neut # (Auto) 2.54 (1.56-6.13) K/mm3 Lymph # (Auto) 2.98 (1.18-3.74) K/mm3 [place] # (Auto) 0.61 H (0.24-0.36) K/mm3 Eos # (Auto) 0.24 (0.04-0.36) K/mm3 Baso # (Auto) 0.04 (0.01-0.08) K/mm3 Sodium 144 (136-145) mEq/L Potassium 4.3 (3.5-5.1) mEq/L Chloride 108 H (98-107) mEq/L Carbon Dioxide 27 (21-32) mEq/L Anion Gap 13.3 (5-15) BUN 16 (7-18) mg/dL Creatinine 0.8 (0.55-1.02) mg/dL Est Cr Clr Drug Dosing 45.66 mL/min Estimated GFR (MDRD) > 60 (>60) mL/min BUN/Creatinine Ratio 20.0 H (14-18) Glucose 104 (83-115) mg/dL POC Glucose 94 (83-110) mg/dL Calcium 8.4 L (8.5-10.1) mg/dL Magnesium 2.1 (1.8-2.4) mg/dl Creatine Kinase 776 H (26-192) U/L /11/06 Range/Units 07:00 WBC (3.98-10.04) K/mm3 RBC (3.98-5.22) M/mm3 Hgb (11.2-15.7) gm/L Hct (34.1-44.9) % MCV (79.4-94.8) fl MCH (25.6-32.2) pg MCHC (32.2-35.5) g/dl RDW Std Deviation (36.4-46.3) fL Plt Count (182-369) K/mm3 MPV (9.4-12.3) fl Neut % (Auto) (34.0-71.1) % Lymph % (Auto) (19.3-51.7) % [place] % (Auto) (4.7-12.5) % Eos % (Auto) (0.7-5.8) Baso % (Auto) (0.1-1.2) % Neut # (Auto) (1.56-6.13) K/mm3 Lymph # (Auto) (1.18-3.74) K/mm3 [place] # (Auto) (0.24-0.36) K/mm3 Eos # (Auto) (0.04-0.36) K/mm3 Baso # (Auto) (0.01-0.08) K/mm3 Sodium (136-145) mEq/L Potassium (3.5-5.1) mEq/L Chloride (98-107) mEq/L Carbon Dioxide (21-32) mEq/L Anion Gap (5-15) BUN (7-18) mg/dL Creatinine (0.55-1.02) mg/dL Est Cr Clr Drug Dosing mL/min Estimated GFR (MDRD) (>60) mL/min BUN/Creatinine Ratio (14-18) Glucose (83-115) mg/dL POC Glucose 91 (83-110) mg/dL Calcium (8.5-10.1) mg/dL Magnesium (1.8-2.4) mg/dl Creatine Kinase (26-192) U/L Med Orders - Current: Current Medications Enoxaparin Sodium (Lovenox) 40 mg SUBCUT DAILY [facility] Last Admin: 08/27/16 09:07 Dose: 40 mg Sodium Chloride (Normal Saline) 1,000 mls @ 75 mls/hr IV ASDIRECTED [facility] Last Admin: 08/27/16 09:07 Dose: 75 mls/hr Sertraline HCl (Zoloft) 62.5 mg PO DAILY [facility] Last Admin: 08/27/16 09:06 Dose: 62.5 mg Simvastatin (Zocor) 5 mg PO BEDTIME [facility] Last Admin: 08/26/16 21:32 Dose: 5 mg Discontinued Medications Dextrose/Sodium Chloride (Dextrose 5%-Normal Saline) 1,000 mls @ 999 mls/hr IV ASDIRECTED [facility] Last Admin: 08/24/16 11:00 Dose: 999 mls/hr Sodium Chloride (Normal Saline) 1,000 mls @ 100 mls/hr IV ASDIRECTED [facility] Last Admin: 08/25/16 08:30 Dose: 100 mls/hr Potassium Chloride (Klor-Con M20) 40 meq PO ONETIME ONE Stop: 08/25/16 09:01 Last Admin: 08/25/16 08:19 Dose: 40 meq Sertraline HCl (Zoloft) 50 mg PO DAILY [facility] Last Admin: 08/25/16 08:19 Dose: 50 mg - Exam Quality Assessment: DVT prophylaxis General: alert, oriented, cooperative HEENT: Pupils equal, Pupils reactive, EOMI Neck: supple, trachea midline, no JVD Lungs: Normal respiratory effort Cardiovascular: Regular Rate Abdomen: bowel sounds present, soft, no tenderness, no distension (Female) Exam: Deferred Back Exam: normal inspection Extremities: normal pulses Skin: warm Neurological: no new focal deficit Psy/Mental Status: alert - Problem List & Annotations (1) Alzheimers disease SNOMED Code(s): 11454555 Code(s): G30.9 - ALZHEIMER'S DISEASE, UNSPECIFIED Status: Chronic Current Visit: Yes Qualifiers: Alzheimer's disease onset: unspecified onset Dementia behavioral disturbance: without behavioral disturbance Qualified Code(s): G30.9 - Alzheimer's disease, unspecified; F02.80 - Dementia in other diseases classified elsewhere without behavioral disturbance (2) Contusion, multiple sites SNOMED Code(s): 909478285 Code(s): T14.8 - OTHER INJURY OF UNSPECIFIED BODY REGION Status: Acute Priority: Medium Current Visit: Yes - Problem List Review Problem List Initiated/Reviewed/Updated: Yes - My Orders Last 24 Hours: My Active Orders 08/27/16 08:00 Sodium Chloride 0.9% [Normal Saline] 1,000 ml IV ASDIRECTED 08/28/16 05:00 CBC WITH AUTO DIFF [HEME] DAILY CPK [CREATINE KINASE,CK] [CHEM] DAILY 08/28/16 08:00 MRA Neck Without Contrast [Ang Neck wo Cont] [MR] Routine - Plan Plan:: Impression: Query LOC, doubt No apparent seizure activity; no recent head trauma S/P Fall, change in gait Query TIA, abnormal carotid study with moderate L ICA stenosis Doubt seizure Dehydration, resolved. Rhabdomyolysis improving Chronic HTN Hyperlipidemia Plan: Cardiac work up for CAD/ischemia Neuro checks with vital signs 2D echo pending/carotid duplex abnormal IVF resume 08/27/16, hydrate MRA re: DION, left sided on 08/28/16 Daily labs DVT/GI prophylaxis LOS>96 hours addressing placement
[2016-08-27] MEDS: Simvastatin 10 MG Tab PO SCH (20:48)
--- NOTE | 2016-08-27 21:33 | CONS ---
CONSULTING PHYSICIAN: Laith Sales MD DATE OF CONSULTATION: 08/26/2016 IDENTIFICATION: The patient is a 71-year-old female, who is admitted to the inpatient medical unit at [facility] on 08/24/2016. She is seen for psychiatric evaluation this morning. CHIEF COMPLAINT: "Seeing as what I did, I need mental help." HISTORY OF PRESENT ILLNESS: The patient is a 71-year-old female. She was admitted to Med Surg Unit at [facility] in [place], [place] on 08/24/2016 after being found by her granddaughter in her bedroom wedge between some furniture. The patient was reporting multiple bruises on her body stating "I bashed my body pretty bad" and she states that she must have fallen at home, but she is not really sure how she did. She states that she had been "doing well prior to the event" and again is emphasizing that she has a hard time remembering exactly what happened. She thought she might have been looking for something behind her dresser and then get stuck behind there, but she states that she just does not recollect what happened prior to her coming into the hospital. She states that lately "I do have memory problem," but she states that she can remember things remotely and she knows the day, the date, the month, and where she is at. She does state that she had just returned from an 8-week visit to see her 95-year-old mother out in [place] and there had been some family issues going on there, so she was a little stressed. She also states that she was and her not too long ago and she states that she has been sad about that and she knows "I miss him so much." She does endorse increased crying episodes. That said, she has good sleep patterns and good energy levels. She has been on Zoloft since she lost her and she notes "the medication does make me feel better. It helps balance things out." At this point in time, she is denying any suicidal or homicidal ideation or any psychotic, delusional, or paranoid symptoms. MEDICATIONS: At the time of presentation: 1. Zoloft 50 mg daily. 2. Zocor. ALLERGIES: No known drug allergies. PAST MEDICAL HISTORY: 1. Hypertension. 2. Cholesterol. 3. Bruises. 4. Possible fracture of ribs. REVIEW OF SYSTEMS: Aside from cardiovascular, endocrine, and musculoskeletal, all other major organ systems are negative at this point in time for acute difficulties and complications. The patient does not know she was adopted very young. FAMILY PSYCHIATRIC AND CD HISTORY: Essentially negative. Denies any prior psychiatric hospitalizations or chemical dependency treatments. Denies any previous suicide attempts, self-injurious behaviors, or eating disorder history. Denies any abuse issues while being raised. She is a nontobacco user. She has never been on any psychiatric medications prior to being placed on Zoloft. SOCIAL HISTORY: The patient was born and raised in [place], [place], and she is x1 for many years. Her 1-1/2 years ago secondary to Parkinson's disease and complications from diabetes. The patient had been living in [place] with her for the past 18 years. Her was a college political science professor at [employer]. She had 2 daughters from the union. She has been living by herself in [place], [place]. She enjoys spending time with her dog and 4 cats and walking. She was raised Restorationist and frequently attends Religion [employer] as one of her daughters is Religion now. MENTAL STATUS EXAM: The patient is a 71-year-old white female, in no apparent distress. Speech is of regular rate and rhythm. The patient is cognitively oriented x3. Psychomotor activity is within normal limits. There is no abnormal motor movements or tics observed. Gait and station are not observed. This patient is lying in bed during the inpatient consult. Mood is okay but does become sad when she discusses the loss of her . Affect is cooperative for the purposes of the inpatient psychiatric consult but does become tearful again when discussing her 's . There is no behavioral or stated evidence of acute suicidal or homicidal ideation or acute psychotic delusional or paranoid symptoms. Thought processes are organized overall. There are no acute manic symptoms, loose associations evident. Judgment and insight appear unimpaired at this point in time. Motivation for help is good. VITAL SIGNS: 99/50, 89, 16, and 98.9 degrees. IMPRESSION: Torrington I: 1. Depression, NOS, F32.9. 2. Rule out PTSD. Torrington II: None. Torrington III: 1. Hypertension. 2. Cholesterol. 3. Bruising and possible fractures from fall at home, most likely secondary to a syncopal episode. Torrington IV: Severe. Torrington V: 60. PLAN: 1. Pastoral guidance. 2. The patient is requesting a Bible, will see if staff can get a Bible for the patient to have during her stay, so she can do her daily Bible reads. 3. Recommend increasing Zoloft from 50 to 62.5 mg q.a.m. to help the patient with mood. 4. Other medications and treatment planning as ordered by the patient's primary medical treatment team. 5. Disposition to be determined by patient's primary medical treatment team. The patient is not needing any type of transfer to inpatient psychiatry at this point in time. 6. We will continue to follow up with the patient on a regular basis as needed while the patient remains on the inpatient medical unit. 7. We will follow up with the patient sooner if any complications in the interim. 8. Recommend the patient to follow up with Outpatient Psychiatry when she is medically stabilized and discharged back to the Community to assess overall function efficacy of her newly adjusted psychiatric medication regimen. 9. Crisis plan is in place. MMODAL /[id number]
[2016-08-28 08:10] VITALS: BP 143/81
[2016-08-28] MEDS: Sertraline 25 MG Tab PO SCH (08:44)
[2016-08-28] MEDS: Enoxaparin 40 MG/0.4 ML Syringe SUBCUT SCH (08:44)
[2016-08-28] MEDS ORDERED: Sodium Chloride 0.9% 10 ML Syringe FLUSH PRN (10:25)
[2016-08-28] MEDS ORDERED: Gadobenate Dimeglumine 529 MG/ML 20 ML SDV IVPUSH ONE (10:25)
--- NOTE | 2016-08-28 10:35 | CR ---
Chest: Two views of the chest are obtained. Comparison: Previous chest x-ray 08/24/16. Heart size at the upper limits of normal. Tortuous thoracic aorta is seen. Minimal increased markings within the left base are seen. Lungs otherwise are clear. Impression: 1. Minimal densities within the left lung base. This is an interval change from prior study. Mild area of atelectasis versus early area of pneumonia are within the differential. 2. Other incidental findings which are stable. Diagnostic code #3 I agree with preliminary report issued by ad (report finalized on 08/26/16, 11:01 AM Central Time)
--- NOTE | 2016-08-28 10:50 | PCM.DCSUM1 ---
<Otilia Padilla - Last Filed: 08/28/16 12:08> Discharge Summary - Hospital Course Free Text/Narrative:: 71 year old female admitted to med/surg telemetry unit from ER, who was last in contact with her family 08/22/16 before 1500 hour. They had attempted to contact her by phone but were unsuccessful. She had reported loss of consciousness, and could not provide details. The patient was found wedged between a dresser and a wall by family members. At the time she was found, she was unable to recognize her daughters/granddaughters. She was orthostatic upon evaluation in the ED, and could recall the events which preceded her fall. There was no head trauma, change in vision, difficulty walking. Lab results are unremarkable; neuro exam is non focal. Hospitalist service is consulted for admission for further evaluation regarding possible syncope/collapse, fall and rabdomyolysis. Patient was aggressively hydrated, CK levels came down nicely; initial level 4, 045 to 410 on day of discharge. Renal function remained WNL. Troponins and EKG' s were negative. Head CT was unremarkable for acute findings. Carotid dopplers with 50-79% stenosis to left carotid; MRA of carotid is pending at time of discharge for further evaluation of carotid artery disease. Orthostasis resolved with hydration. Blood and urine cultures were negative. Echocardiogram was obtained with EF of 55-60%, normal valvular functions. PT/OT worked with her and found her at prior level of functioning, no need for outpatient services needed. Speech was consulted for cognitive evaluation with findings of mild to moderate cognitive impairment. It is recommended by team that she have [facility]/SNF placement vs home health and community based services; patient refuses to even discuss any placement or assistance. Will recommend Neurology evaluation as outpatient for early dementia eval. Follow up with PCP, Deyanira Cook PA-C within 1-2 weeks of discharge. - Discharge Data Discharge Date: 08/28/16 (admit date 08/24/16) Discharge Disposition: Home, Self-Care 01 Condition: Good - Patient Summary/Data Operative Procedure(s) Performed: None Complications: None Consults: Consultations 08/25/16 09:00 Consult to Physical Therapy [PT Evaluation and Treatment] [CONS] Routine 08/25/16 10:00 Consult to Occupational Therapy [OT Evaluation and Treatment] [CONS] Routine Consult to Yeast Pusher [CONS] Routine 08/25/16 11:56 Consult to Speech Language Pathology [BACK WINDER Evaluation and Treatment] [CONS] Routine 08/25/16 15:00 Consult to Physician [CONS] Routine 08/26/16 08:58 Consult to Spiritual Care [CONS] Routine Labs Pending at D/C: MRA of carotid arteries Recommended Follow-up Testing/Procedures: Follow up with your PCP, Deyanira Cook PA-C within 1-2 weeks Consider Neurology evaluation as outpatient for evaluation of early progressive dementia and sundowning behaviors at bedtime Consider Assisted Living arrangements as recommended by Hospital Team for safety with cognitive impairments. Recommend 24-7 care and assistance, home and community based services can still be available. Planned Operative Procedure(s) after DC: None Hospital Course: As above - Patient Instructions Diet: Heart Healthy Diet Activity: As Tolerated Driving: Do Not Drive Showering/Bathing: May Shower Notify Provider of: Fever, Increased Pain, Swelling and Redness, Nausea and/or Vomiting (gait imbalance, falls, dizziness, chest pain) - Discharge Plan Prescriptions/Med Rec: Sertraline [Zoloft] 62.5 mg PO DAILY #30 tablet Home Medications: Home Meds Hydrochlorothiazide 12.5 mg PO DAILY 09/09/14 [History] Simvastatin [Zocor] 5 mg PO BEDTIME 09/09/14 [History] Sertraline [Zoloft] 62.5 mg PO DAILY #30 tablet 08/28/16 [Rx] Patient Handouts: Fall Prevention in the Home, Snla-[id number], Dementia, Syncope , [id number] Forms: ED Department Discharge Referrals: Deyanira Cook PA-C [Primary Care Provider] - 09/04/16 10:00 am (Please follow up with Deyanira Cook on SundaySeptember 04 at 1000. ) - Discharge Summary/Plan Comment DC Time >30 min.: Yes (40 min) - General Info Date of Service: 08/28/16 Admission Dx/Problem (Free Text: Admission Diagnosis/Problem Admission Diagnosis/Problem Syncope is seen this morning; she is pleasantly confused. Denies complaints of pain other than mild discomfort to her right hand (scabs s/p fall at home). States she slept well and ate a good breakfast. Is anxious to be discharged home today. She has been adamant that she will go home and no where else despite team recommendations for NURSING HOME/SNF due to cognitive impairment. SW has made many attempts with patient and family to discuss other options, offer home and community based services but patient refuses any assistance. Functional Status: Reports: pain controlled, tolerating diet, ambulating, urinating. Denies: new symptoms - Review of Systems General: Reports: No Symptoms. Denies: Fever, Weakness, Fatigue, Malaise HEENT: Reports: no symptoms Pulmonary: Reports: no symptoms. Denies: shortness of breath, cough Cardiovascular: Reports: No Symptoms. Denies: Chest Pain, Palpitations, Dyspnea on Exertion, Lightheadedness Gastrointestinal: Reports: No symptoms Genitourinary: Reports: no symptoms Musculoskeletal: Reports: no symptoms Skin: Reports: no symptoms Neurological: Reports: Confusion (intermittent confusion re: details of hospitalization and events leading to hospitalization), Dizziness, Headache Psychiatric: Reports: no symptoms - Patient Data Vitals - Most Recent: Last Vital Signs Temp 99.0 F 08/28/16 07:37 Pulse 69 08/28/16 07:37 Resp 18 08/28/16 07:37 BP 143/81 H 08/28/16 07:37 Pulse Ox 95 08/28/16 07:37 Orthostatic Blood Pressure [ 97/79 Standing] Orthostatic Blood Pressure [ 128/63 Sitting] Orthostatic Blood Pressure [ 102/49 Supine] Weight - Most Recent: 63.594 kg I&O - Last 24 hours: Intake & Output 08/27/16 08/28/16 08/28/16 22:59 06:59 14:59 Intake Total 6443 400 330 Output Total 4957 1225 Balance -336 -825 330 Lab Results - Last 24 hrs: Laboratory Results - last 24 hr 08/27/16 08/28/16 08/28/16 Range/Units 22:12 04:53 04:53 WBC 6.40 (3.98-10.04) K/mm3 RBC 4.48 (3.98-5.22) M/mm3 Hgb 13.0 (11.2-15.7) gm/L Hct 40.0 (34.1-44.9) % MCV 89.3 (79.4-94.8) fl MCH 29.0 (25.6-32.2) pg MCHC 32.5 (32.2-35.5) g/dl RDW Std Deviation 43.9 (36.4-46.3) fL Plt Count 247 (182-369) K/mm3 MPV 10.2 (9.4-12.3) fl Neut % (Auto) 40.6 (34.0-71.1) % Lymph % (Auto) 44.1 (19.3-51.7) % Vance % (Auto) 10.9 (4.7-12.5) % Eos % (Auto) 3.6 (0.7-5.8) Baso % (Auto) 0.6 (0.1-1.2) % Neut # (Auto) 2.60 (1.56-6.13) K/mm3 Lymph # (Auto) 2.82 (1.18-3.74) K/mm3 Vance # (Auto) 0.70 H (0.24-0.36) K/mm3 Eos # (Auto) 0.23 (0.04-0.36) K/mm3 Baso # (Auto) 0.04 (0.01-0.08) K/mm3 Sodium (136-145) mEq/L Potassium (3.5-5.1) mEq/L Chloride (98-107) mEq/L Carbon Dioxide (21-32) mEq/L Anion Gap (5-15) BUN (7-18) mg/dL Creatinine (0.55-1.02) mg/dL Est Cr Clr Drug Dosing mL/min Estimated GFR (MDRD) (>60) mL/min BUN/Creatinine Ratio (14-18) Glucose (83-115) mg/dL POC Glucose 117 H (83-110) mg/dL Calcium (8.5-10.1) mg/dL Creatine Kinase 410 H (26-192) U/L 08/28/16 08/28/16 08/28/16 Range/Units 06:46 08:30 08:30 WBC 6.32 (3.98-10.04) K/mm3 RBC 4.55 (3.98-5.22) M/mm3 Hgb 13.4 (11.2-15.7) gm/L Hct 40.8 (34.1-44.9) % MCV 89.7 (79.4-94.8) fl MCH 29.5 (25.6-32.2) pg MCHC 32.8 (32.2-35.5) g/dl RDW Std Deviation 44.2 (36.4-46.3) fL Plt Count 270 (182-369) K/mm3 MPV 9.7 (9.4-12.3) fl Neut % (Auto) (34.0-71.1) % Lymph % (Auto) (19.3-51.7) % Vance % (Auto) (4.7-12.5) % Eos % (Auto) (0.7-5.8) Baso % (Auto) (0.1-1.2) % Neut # (Auto) (1.56-6.13) K/mm3 Lymph # (Auto) (1.18-3.74) K/mm3 Vance # (Auto) (0.24-0.36) K/mm3 Eos # (Auto) (0.04-0.36) K/mm3 Baso # (Auto) (0.01-0.08) K/mm3 Sodium 141 (136-145) mEq/L Potassium 3.9 (3.5-5.1) mEq/L Chloride 105 (98-107) mEq/L Carbon Dioxide 26 (21-32) mEq/L Anion Gap 13.9 (5-15) BUN 18 (7-18) mg/dL Creatinine 1.0 (0.55-1.02) mg/dL Est Cr Clr Drug Dosing 36.53 mL/min Estimated GFR (MDRD) 55 (>60) mL/min BUN/Creatinine Ratio 18.0 (14-18) Glucose 162 H (83-115) mg/dL POC Glucose 88 (83-110) mg/dL Calcium 8.8 (8.5-10.1) mg/dL Creatine Kinase (26-192) U/L Med Orders - Current: Current Medications Enoxaparin Sodium (Lovenox) 40 mg SUBCUT DAILY [facility] Last Admin: 08/28/16 08:44 Dose: 40 mg Sertraline HCl (Zoloft) 62.5 mg PO DAILY [facility] Last Admin: 08/28/16 08:44 Dose: 62.5 mg Simvastatin (Zocor) 5 mg PO BEDTIME [facility] Last Admin: 08/27/16 20:48 Dose: 5 mg Discontinued Medications Gadobenate Dimeglumine (Multihance) 20 ml IVPUSH ONETIME ONE Stop: 08/28/16 10:26 Last Admin: 08/28/16 10:27 Dose: 20 ml Dextrose/Sodium Chloride (Dextrose 5%-Normal Saline) 1,000 mls @ 999 mls/hr IV ASDIRECTED [facility] Last Admin: 08/24/16 11:00 Dose: 999 mls/hr Sodium Chloride (Normal Saline) 1,000 mls @ 100 mls/hr IV ASDIRECTED [facility] Last Admin: 08/25/16 08:30 Dose: 100 mls/hr Sodium Chloride (Normal Saline) 1,000 mls @ 75 mls/hr IV ASDIRECTED [facility] Last Admin: 08/27/16 09:07 Dose: 75 mls/hr Potassium Chloride (Klor-Con M20) 40 meq PO ONETIME ONE Stop: 08/25/16 09:01 Last Admin: 08/25/16 08:19 Dose: 40 meq Sertraline HCl (Zoloft) 50 mg PO DAILY [facility] Last Admin: 08/25/16 08:19 Dose: 50 mg Sodium Chloride (Saline Flush) 40 ml FLUSH ONETIME PRN PRN Reason: Keep Vein Open Stop: 08/28/16 10:40 Last Admin: 08/28/16 10:27 Dose: 40 ml - Exam Quality Assessment: Reports: DVT prophylaxis General: Reports: alert, cooperative, no acute distress HEENT: Reports: Pupils equal, Pupils reactive, EOMI, Mucous membr. moist/pink Neck: Reports: supple Lungs: Reports: Clear to auscultation, Normal respiratory effort Cardiovascular: Reports: Regular Rate, Regular Rhythm, No Murmurs Abdomen: Reports: bowel sounds present, soft, no tenderness, no distension (Female) Exam: Deferred Rectal (Female) Exam: Deferred Extremities: Reports: no edema Neurological: Reports: no new focal deficit Psy/Mental Status: Reports: alert *Q Meaningful Use (DIS) - VTE *Q VTE Criteria *Q: - Stroke *Q Stroke Criteria *Q: - AMI *Q AMI Criteria *Q: <Luciana Maurer - Last Filed: 08/28/16 16:34> Discharge Summary - Hospital Course Free Text/Narrative:: Reported LOC, does has have dementia. Will need placement in the future, declined the option duting this admission. - Discharge Diagnosis/Problem(s) (1) Alzheimers disease SNOMED Code(s): 45223572 ICD Code: G30.9 - ALZHEIMER'S DISEASE, UNSPECIFIED Status: Chronic Qualifiers: Alzheimer's disease onset: unspecified onset Dementia behavioral disturbance: without behavioral disturbance Qualified Code(s): G30.9 - Alzheimer's disease, unspecified; F02.80 - Dementia in other diseases classified elsewhere without behavioral disturbance (2) Contusion, multiple sites SNOMED Code(s): 102430894 ICD Code: T14.8 - OTHER INJURY OF UNSPECIFIED BODY REGION Status: Acute Priority: Medium - Patient Summary/Data Consults: Consultations 08/25/16 09:00 Consult to Physical Therapy [PT Evaluation and Treatment] [CONS] Routine 08/25/16 10:00 Consult to Occupational Therapy [OT Evaluation and Treatment] [CONS] Routine Consult to Yeast Pusher [CONS] Routine 08/25/16 11:56 Consult to Speech Language Pathology [BACK WINDER Evaluation and Treatment] [CONS] Routine 08/25/16 15:00 Consult to Physician [CONS] Routine 08/26/16 08:58 Consult to Spiritual Care [CONS] Routine - Patient Data Vitals - Most Recent: Last Vital Signs Temp 37.2 C 08/28/16 07:37 Pulse 69 08/28/16 07:37 Resp 18 08/28/16 07:37 BP 143/81 H 08/28/16 07:37 Pulse Ox 95 08/28/16 07:37 Orthostatic Blood Pressure [ 97/79 Standing] Orthostatic Blood Pressure [ 128/63 Sitting] Orthostatic Blood Pressure [ 102/49 Supine] I&O - Last 24 hours: Intake & Output 08/28/16 08/28/16 08/28/16 06:59 14:59 22:59 Intake Total 400 330 Output Total 1225 Balance -825 330 Lab Results - Last 24 hrs: Laboratory Results - last 24 hr 08/27/16 08/28/16 08/28/16 Range/Units 22:12 04:53 04:53 WBC 6.40 (3.98-10.04) K/mm3 RBC 4.48 (3.98-5.22) M/mm3 Hgb 13.0 (11.2-15.7) gm/L Hct 40.0 (34.1-44.9) % MCV 89.3 (79.4-94.8) fl MCH 29.0 (25.6-32.2) pg MCHC 32.5 (32.2-35.5) g/dl RDW Std Deviation 43.9 (36.4-46.3) fL Plt Count 247 (182-369) K/mm3 MPV 10.2 (9.4-12.3) fl Neut % (Auto) 40.6 (34.0-71.1) % Lymph % (Auto) 44.1 (19.3-51.7) % Vance % (Auto) 10.9 (4.7-12.5) % Eos % (Auto) 3.6 (0.7-5.8) Baso % (Auto) 0.6 (0.1-1.2) % Neut # (Auto) 2.60 (1.56-6.13) K/mm3 Lymph # (Auto) 2.82 (1.18-3.74) K/mm3 Vance # (Auto) 0.70 H (0.24-0.36) K/mm3 Eos # (Auto) 0.23 (0.04-0.36) K/mm3 Baso # (Auto) 0.04 (0.01-0.08) K/mm3 Sodium (136-145) mEq/L Potassium (3.5-5.1) mEq/L Chloride (98-107) mEq/L Carbon Dioxide (21-32) mEq/L Anion Gap (5-15) BUN (7-18) mg/dL Creatinine (0.55-1.02) mg/dL Est Cr Clr Drug Dosing mL/min Estimated GFR (MDRD) (>60) mL/min BUN/Creatinine Ratio (14-18) Glucose (83-115) mg/dL POC Glucose 117 H (83-110) mg/dL Calcium (8.5-10.1) mg/dL Creatine Kinase 410 H (26-192) U/L 08/28/16 08/28/16 08/28/16 Range/Units 06:46 08:30 08:30 WBC 6.32 (3.98-10.04) K/mm3 RBC 4.55 (3.98-5.22) M/mm3 Hgb 13.4 (11.2-15.7) gm/L Hct 40.8 (34.1-44.9) % MCV 89.7 (79.4-94.8) fl MCH 29.5 (25.6-32.2) pg MCHC 32.8 (32.2-35.5) g/dl RDW Std Deviation 44.2 (36.4-46.3) fL Plt Count 270 (182-369) K/mm3 MPV 9.7 (9.4-12.3) fl Neut % (Auto) (34.0-71.1) % Lymph % (Auto) (19.3-51.7) % Vance % (Auto) (4.7-12.5) % Eos % (Auto) (0.7-5.8) Baso % (Auto) (0.1-1.2) % Neut # (Auto) (1.56-6.13) K/mm3 Lymph # (Auto) (1.18-3.74) K/mm3 Vance # (Auto) (0.24-0.36) K/mm3 Eos # (Auto) (0.04-0.36) K/mm3 Baso # (Auto) (0.01-0.08) K/mm3 Sodium 141 (136-145) mEq/L Potassium 3.9 (3.5-5.1) mEq/L Chloride 105 (98-107) mEq/L Carbon Dioxide 26 (21-32) mEq/L Anion Gap 13.9 (5-15) BUN 18 (7-18) mg/dL Creatinine 1.0 (0.55-1.02) mg/dL Est Cr Clr Drug Dosing 36.53 mL/min Estimated GFR (MDRD) 55 (>60) mL/min BUN/Creatinine Ratio 18.0 (14-18) Glucose 162 H (83-115) mg/dL POC Glucose 88 (83-110) mg/dL Calcium 8.8 (8.5-10.1) mg/dL Creatine Kinase (26-192) U/L Med Orders - Current: Current Medications Discontinued Medications Enoxaparin Sodium (Lovenox) 40 mg SUBCUT DAILY [facility] Last Admin: 08/28/16 08:44 Dose: 40 mg Gadobenate Dimeglumine (Multihance) 20 ml IVPUSH ONETIME ONE Stop: 08/28/16 10:26 Last Admin: 08/28/16 10:27 Dose: 20 ml Dextrose/Sodium Chloride (Dextrose 5%-Normal Saline) 1,000 mls @ 999 mls/hr IV ASDIRECTED [facility] Last Admin: 08/24/16 11:00 Dose: 999 mls/hr Sodium Chloride (Normal Saline) 1,000 mls @ 100 mls/hr IV ASDIRECTED [facility] Last Admin: 08/25/16 08:30 Dose: 100 mls/hr Sodium Chloride (Normal Saline) 1,000 mls @ 75 mls/hr IV ASDIRECTED [facility] Last Admin: 08/27/16 09:07 Dose: 75 mls/hr Potassium Chloride (Klor-Con M20) 40 meq PO ONETIME ONE Stop: 08/25/16 09:01 Last Admin: 08/25/16 08:19 Dose: 40 meq Sertraline HCl (Zoloft) 50 mg PO DAILY [facility] Last Admin: 08/25/16 08:19 Dose: 50 mg Sertraline HCl (Zoloft) 62.5 mg PO DAILY [facility] Last Admin: 08/28/16 08:44 Dose: 62.5 mg Simvastatin (Zocor) 5 mg PO BEDTIME [facility] Last Admin: 08/27/16 20:48 Dose: 5 mg Sodium Chloride (Saline Flush) 40 ml FLUSH ONETIME PRN PRN Reason: Keep Vein Open Stop: 08/28/16 10:40 Last Admin: 08/28/16 10:27 Dose: 40 ml *Q Meaningful Use (DIS) - VTE *Q VTE Criteria *Q: - Stroke *Q Stroke Criteria *Q: - AMI *Q AMI Criteria *Q:
--- NOTE | 2016-08-28 12:10 | MR ---
MR angiogram of neck Technique: [id number] and post-contrast MR angiogram was obtained through the neck with multiple MIP images. Comparison: No previous MRI neck, previous carotid ultrasound of 08/25/16 is available. Findings: Both common carotid artery shows no significant stenosis. Carotid bulbs are within normal limits. No significant stenosis is seen within either the right or left internal carotid arteries. Proximal external carotid arteries are normal. Right and left vertebral arteries are seen and appear patent into the basilar artery. Impression: 1. No significant stenosis is seen within the right or left carotid arteries. Elevated velocity measurement suggesting stenosis on prior carotid ultrasound within left internal carotid artery is therefore felt to be incidental and artifactual. 2. Normal appearance of both vertebral arteries into the basilar artery. Diagnostic code #1
== END 2016-08-28 11:35 | disposition home or self-care (01) | DRG 57 ==
LOC: JD.ED 10:21 → JD.MS 13:15
PROVIDERS: ADMIT Emergency Medicine; ATTEND Internal Medicine Cardiovascular Disease
DX: I95.1 Orthostatic hypotension (principal); G30.9 Alzheimer's disease, unspecified; F02.80 Dementia in other diseases classified elsewhere, unspecified severity, without behavioral disturbance, psychotic disturbance, mood disturbance, and anxiety; T79.6XXA Traumatic ischemia of muscle, initial encounter; T14.8 Other injury of unspecified body region; W19.XXXA Unspecified fall, initial encounter; D72.829 Elevated white blood cell count, unspecified; R55 Syncope and collapse; E86.0 Dehydration; I10 Essential (primary) hypertension; E78.00 Pure hypercholesterolemia, unspecified; E78.5 Hyperlipidemia, unspecified; F32.9 Major depressive disorder, single episode, unspecified; F41.9 Anxiety disorder, unspecified; Z79.899 Other long term (current) drug therapy; G31.84 Mild cognitive impairment of uncertain or unknown etiology
CPT/HCPCS: 36415; 70450; 71010; 80053; 81001; 82550; 82553; 82962; 83735; 83880; 84484; 85025; 85610; 86140; 87040 ×2; 87899; 93005; 96360; 99285; J7042; 70548; 70548-26; 71020; 71020-26; 80048; 80061; 85027; 86738; 87486; 87581; 87633; 87798; 93306; 93880; 93880-26; 96125-GN; 97116-GP; 97161-GP; 97165-GO; 97530-GO; A9270-GY; A9577; J1650; J7040; J7050

== ENCOUNTER 2016-10-30 12:11 | Day surgery (SDC) | payer BC, MEDICARE ==
[~2016-10-30 12:11] MED LIST: Lactated Ringers 1,000 ML IV SCH; Lidocaine 1%/Sod Bicarbonate in NS 8.4% 1 ML Syringe PRN; Sodium Chloride 0.9% 10 ML Syringe FLUSH PRN
--- NOTE | 2016-10-30 13:11 | PCM.PREANE ---
Preanesthetic Assessment - Anesthesia/Transfusion/Family Hx Anesthesia History: Prior Anesthesia Without Reaction Family History of Anesthesia Reaction: No Transfusion History: No Prior Transfusion(s) Intubation History: Unknown - Review of Systems General: No Symptoms Pulmonary: No Symptoms Cardiovascular: No Symptoms (history of HTN), Palpitations (on occasion prior to bedtime) Gastrointestinal: No symptoms Neurological: No Symptoms (history of memory loss), Gait Disturbance ( unsteadiness noted on occasion) Other: Reports: Depression, Anxiety - Physical Assessment NPO Status Date: 10/29/16 NPO Status Time: 16:30 Pulse: 72 O2 Sat by Pulse Oximetry: 95 Respiratory Rate: 17 Blood Pressure: 113/74 Temperature: 37.1 C Vital Signs: Last Vital Signs Temp 37.1 C 10/30/16 12:25 Pulse 72 10/30/16 12:25 Resp 17 10/30/16 12:25 BP 113/74 10/30/16 12:25 Pulse Ox 95 10/30/16 12:25 Height: 1.52 m Weight: 60.328 kg ASA Class: 2 Mental Status: Alert & Oriented x3 Airway Class: Mallampati = 2 Dentition: Reports: Normal Dentition, Caries Thyro-Mental Finger Breadths: 3 Mouth Opening Finger Breadths: 3 ROM/Head Extension: Full Lungs: Clear to auscultation, Normal respiratory effort Cardiovascular: Regular Rate, Regular Rhythm, No Murmurs - Lab Values: Laboratory Last Values MRSA (PCR) Negative 10/27/16 13:22 Lab values noted and reviewed with values noted in acceptable ranges to proceed with scheduled procedure. - Imaging/EKG Impressions: EKG: SR rate= 74 CXR: minimal left lung base density noted. Echocardiogram: EF= 60-65%, Trace tricuspid valve regurgitation - Allergies Allergies/Adverse Reactions: Allergies Allergy/AdvReac Type Severity Reaction Status Date / Time No Known Allergies Allergy Verified 10/30/16 12:56 - Anesthesia Plan Pre-Op Medication Ordered: None - Acknowledgements Anesthesia Type Planned: General Anesthesia Pt an Appropriate Candidate for the Planned Anesthesia: Yes Alternatives and Risks of Anesthesia Discussed w Pt/Guardian: Yes Pt/Guardian Understands and Agrees with Anesthesia Plan: Yes PreAnesthesia Questionnaire HEENT History: Reports: Cataract Other HEENT History: Wears glasses Cardiovascular History: Reports: High Cholesterol, Hypertension Respiratory History: Reports: None Gastrointestinal History: Reports: None Genitourinary History: Reports: None 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 Hematologic History: Reports: None Immunologic History: Reports: None Oncologic (Cancer) History: Reports: None Dermatologic History: Reports: None - Infectious Disease History Infectious Disease History: Reports: Chicken Pox, Measles, Mumps, Shingles - Past Surgical History Head Surgeries/Procedures: Reports: None HEENT Surgical History: Reports: Cataract Surgery Cardiovascular Surgical History: Reports: None Respiratory Surgical History: Reports: None GI Surgical History: Reports: None Female Surgical History: Reports: Section Endocrine Surgical History: Reports: None Neurological Surgical History: Reports: None Musculoskeletal Surgical History: Reports: None Oncologic Surgical History: Reports: None Dermatological Surgical History: Reports: None - SUBSTANCE USE Smoking Status *Q: Never Smoker Tobacco Use Within Last Twelve Months: No Second Hand Smoke Exposure: No Days Per Week of Alcohol Use: 0 Recreational Drug Use History: No - HOME MEDS Home Medications: Home Meds Hydrochlorothiazide 12.5 mg PO DAILY 09/09/14 [History] Simvastatin [Zocor] 5 mg PO BEDTIME 09/09/14 [History] Sertraline [Zoloft] 62.5 mg PO DAILY #30 tablet 08/28/16 [Rx] Acetaminophen/HYDROcodone [Everest 325-5 MG] 1 - 2 tab PO Q6H PRN #40 tablet 10/30 [Rx] - CURRENT (IN HOUSE) MEDS Current Meds: Current Medications Lactated Ringer's (Ringers, Lactated) 1,000 mls @ 125 mls/hr IV ASDIRECTED [place]LIN Stop: 10/30/16 23:00 Last Admin: 10/30/16 12:43 Dose: 125 mls/hr Lidocaine/Sodium Bicarbonate (Buffered Lidocaine 1% In Ns 8.4%) 0.25 ml .XX ONETIME PRN PRN Reason: Prior to IV Start Stop: 10/30/16 18:00 Last Admin: 10/30/16 12:43 Dose: 0.25 ml Sodium Chloride (Saline Flush) 10 ml FLUSH ASDIRECTED PRN PRN Reason: Keep Vein Open Stop: 10/30/16 18:00
[2016-10-30] MEDS ORDERED: Lidocaine 1% 4 ML ONE (13:38)
[2016-10-30] MEDS ORDERED: fentaNYL 100 MCG/2 ML SDV ONE (13:38)
[2016-10-30] MEDS ORDERED: Lactated Ringers 1,000 ML ONE (13:38)
[2016-10-30] MEDS ORDERED: Ondansetron 4 MG/2 ML SDV ONE (13:38)
[2016-10-30] MEDS ORDERED: Propofol 200 MG/20 ML SDV ONE ×2 (13:38→14:09)
[2016-10-30] MEDS ORDERED: HYDROmorphone 0.5 MG/0.5 ML Syringe IVPUSH PRN (14:04)
[2016-10-30] MEDS ORDERED: Ondansetron 4 MG/2 ML SDV IVPUSH PRN (14:04)
[2016-10-30] MEDS ORDERED: fentaNYL 100 MCG/2 ML SDV IVPUSH PRN (14:04)
[2016-10-30] MEDS ORDERED: fentaNYL 250 MCG/5 ML SDV ONE (14:09)
[2016-10-30] MEDS ORDERED: Midazolam 1 MG/ML 2 ML SDV ONE (14:09)
--- NOTE | 2016-10-30 14:34 | PCM.POSTAN ---
POST ANESTHESIA ASSESSMENT - MENTAL STATUS Mental Status: alert - VITAL SIGNS Pulse Rate: 83 SaO2: 95 Resp Rate: 11 Blood Pressure: 157/82 Temperature: 37.6 C - RESPIRATORY Respiratory Status: respiratory rate WNL, airway patent, O2 saturation stable, supplemental oxygen - CARDIOVASCULAR CV Status: pulse rate WNL, blood pressure stable - GASTROINTESTINAL GI Status: no symptoms - POST OP HYDRATION Hydration Status: adequate & stable
[2016-10-30] MEDS ORDERED: Acetaminophen/HYDROcodone 325-5 MG Tab PO SCH (15:15)
--- NOTE | 2016-10-30 15:34 | PCM48HPAN ---
Post Anesthesia Note - EVALUATION WITHIN 48HRS OF ANESTHETIC Vital Signs in Normal Range: Yes Patient Participated in Evaluation: Yes Respiratory Function Stable: Yes Airway Patent: Yes Cardiovascular Function Stable: Yes Hydration Status Stable: Yes Pain Control Satisfactory: Yes Nausea and Vomiting Control Satisfactory: Yes Mental Status Recovered: Yes
[2016-10-30 16:31] VITALS: BP 140/77
--- NOTE | 2016-10-31 09:08 | CR ---
Right wrist: Multiple fluoroscopic spot views were obtained utilizing C-arm device of the right wrist. Comparison: Previous left wrist study of 10/23/16. Study shows mild reduction of previous comminuted distal radial fracture. Old ununited fracture within the ulnar styloid process is seen. Final 2 films show fiberglass cast in place. Impression: 1. Reduction of previous distal radial fracture. Placement of fiberglass cast. Diagnostic code #2
--- NOTE | 2016-11-03 13:21 | PCM.OPNOTE ---
- General Post-Op/Procedure Note Date of Surgery/Procedure: 10/30/16 Operative Procedure(s): closed reduction with casting of right intra-articular distal radius fracture Pre Op Diagnosis: right intra-articular distal radius fracture Post-Op Diagnosis: Same Anesthesia Technique: General LMA Primary Surgeon: Jonathan Gardiner Anesthesia Provider: Aleida Reed Hydraulic Jack Mechanic: Johnna Steen in mLs: 0 Complications: None Condition: Good
--- NOTE | 2016-11-03 14:05 | OR ---
DATE OF OPERATION: 10/30/2016 SURGEON: Jonathan Gardiner MD OPERATION PERFORMED: Close reduction with casting of right intra-articular distal radius fracture. PREOPERATIVE DIAGNOSIS: Right intra-articular distal radius fracture. POSTOPERATIVE DIAGNOSIS: Right intra-articular distal radius fracture. ANESTHESIA: General LMA. ANESTHESIA PROVIDER: Aleida Reed CRNA . COOK LARDER: Johnna Steen LPN. ESTIMATED BLOOD LOSS: Not applicable. COMPLICATIONS: None. CONDITION: Stable. DESCRIPTION OF PROCEDURE: The patient was identified in the preoperative holding area. Proper site was marked and identified by the surgeon. At this time, we also discussed again with both her and her daughter, the possibility of close reduction versus open reduction. At this time, the patient changed her mind and wanted a closed reduction attempted and done if at all possible. The daughter at this time, still wanted to undergo an open reduction and internal fixation. I did discuss that we will do the patient's wishes and in the bulky, both will do very well usually for the patient. At this time, the patient was taken back to the operating theater where after adequate anesthesia, the patient had fluoro films taken showing the displacement. A closed reduction was then undertaken to the right distal radius fracture where we were able to get it to neutral positioning although there was some step-off noted still intra-articularly but it was roughly around 2 mm. At this time, short arm cast was applied and the Cotton Loder positioned to aid with reduction. This was allowed to set up. Final film showed an adequate position for healing and with the patient's wishes for closed reduction. The patient was sent to PACU in stable condition. MMODAL /[id number]
== END 2016-10-30 16:01 | disposition home or self-care (01) ==
LOC: JD.SDS 12:11
PROVIDERS: ATTEND Orthopaedic Surgery
PROC: 0PSHXZZ Reposition Right Radius, External Approach (ICD-10-PCS; principal; 2016-10-30)
DX: S52.571A Other intraarticular fracture of lower end of right radius, initial encounter for closed fracture (principal); W19.XXXA Unspecified fall, initial encounter; I10 Essential (primary) hypertension; M19.90 Unspecified osteoarthritis, unspecified site; E78.00 Pure hypercholesterolemia, unspecified; E78.2 Mixed hyperlipidemia; M81.0 Age-related osteoporosis without current pathological fracture
CPT/HCPCS: 25605; 76000; 87641; A9270; J2405; J3010; J7120; 01820; J2250; J2704

== ENCOUNTER 2020-05-05 20:37 | Emergency (ER) | payer BC, MEDICARE ==
[2020-05-05 20:54] VITALS: BP 138/64; PULSE 44
[2020-05-05] MEDS ORDERED: Sodium Chloride 0.9% 10 ML Syringe FLUSH PRN (21:15)
--- NOTE | 2020-05-05 21:24 | EDM.PDOC ---
<Loren Yoon - Last Filed: 05/05/20 22:22> ED HPI GENERAL MEDICAL PROBLEM - General Chief Complaint: General Stated Complaint: TOOK WRONG MEDICATION Time Seen by Provider: 05/05/20 20:56 Source of Information: Reports: Patient, Family, RN Notes Reviewed History Limitations: Reports: No Limitations - History of Present Illness INITIAL COMMENTS - FREE TEXT/NARRATIVE: Patient is a 75-year-old female presenting to the emergency department with her daughter after taking the wrong medications this evening. Daughter states that the patient normally takes her meds with supper, however this evening she took her daughter's meds. Her daughter takes isosorbide 60 mg, metoprolol 25 mg, amlodipine 5 mg, primidone 150 mg, Lamictal 100 mg, and tizanidine 4 mg. Patient is alert answer questions, however is "very tired ". Patient's normal daily medications are donepezil, oxybutynin, sertraline, calcium, multivitamin, and memantine. She denies any chest pain or shortness of breath. - Related Data Allergies Allergy/AdvReac Type Severity Reaction Status Date / Time No Known Allergies Allergy Verified 10/30/16 12:56 Home Meds: Home Meds Simvastatin [Zocor] 5 mg PO BEDTIME 09/09/14 [History] Calcium Carbonate [Calcium] 500 mg PO DAILY 05/05/20 [History] Donepezil HCl 10 mg PO DAILY 05/05/20 [History] Memantine [Namenda] 10 mg PO DAILY 05/05/20 [History] Multivitamin 1 tab PO DAILY 05/05/20 [History] Oxybutynin 5 mg PO DAILY 05/05/20 [History] Sertraline [Zoloft] 50 mg PO DAILY 05/05/20 [History] Past Medical History HEENT History: Reports: Cataract, Impaired Vision Other HEENT History: Wears glasses Cardiovascular History: Reports: High Cholesterol, Hypertension Respiratory History: Reports: Pneumonia, Recurrent Gastrointestinal History: Reports: None Genitourinary History: Reports: None 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 Hematologic History: Reports: None Immunologic History: Reports: None Oncologic (Cancer) History: Reports: None Dermatologic History: Reports: None - Infectious Disease History Infectious Disease History: Reports: Chicken Pox, Measles, Mumps, Shingles - Past Surgical History HEENT Surgical History: Reports: Cataract Surgery Female Surgical History: Reports: Section Other Female Surgeries/Procedures: 3 C-sections, corrective surgery for Previous Endocrine Surgical History: Reports: None Oncologic Surgical History: Reports: None Social & Family History - Family History Family Medical History: Unobtainable Other HEENT Family History: Patient unsure as she was adopted when she was younger. - Tobacco Use Tobacco Use Status *Q: Never Tobacco User Second Hand Smoke Exposure: No - Caffeine Use Caffeine Use: Reports: Coffee Other Caffeine Use: 3-4 cups per day. - Recreational Drug Use Recreational Drug Use: No - Living Situation & Occupation Living situation: Reports: , Alone Occupation: Retired ED ROS GENERAL - Review of Systems Review Of Systems: See Below Constitutional: Reports: Fatigue. Denies: Fever HEENT: Reports: No Symptoms Respiratory: Reports: No Symptoms. Denies: Shortness of Breath, Cough Cardiovascular: Reports: No Symptoms. Denies: Chest Pain Endocrine: Reports: No Symptoms GI/Abdominal: Reports: No Symptoms : Reports: No Symptoms Musculoskeletal: Reports: No Symptoms Skin: Reports: No Symptoms Neurological: Reports: Confusion (At baseline due to history of dementia) Psychiatric: Reports: No Symptoms Hematologic/Lymphatic: Reports: No Symptoms Immunologic: Reports: No Symptoms ED EXAM, GENERAL - Physical Exam Exam: See Below Exam Limited By: No Limitations General Appearance: Alert, WD/WN, No Apparent Distress, Other (Sleepy. Responds to verbal stimuli and answers questions appropriately) Respiratory/Chest: No Respiratory Distress, Lungs Clear, Normal Breath Sounds, No Accessory Muscle Use, Chest Non-Tender Cardiovascular: Normal Peripheral Pulses, Regular Rate, Rhythm, No Edema, No Gallop, No JVD, No Murmur, No Rub GI/Abdominal: Normal Bowel Sounds, Soft, Non-Tender, No Organomegaly, No Distention, No Abnormal Bruit, No Mass Neurological: Alert, Oriented, CN II-XII Intact, Normal Cognition, Normal Gait, Normal Reflexes, No Motor/Sensory Deficits Psychiatric: Normal Affect, Normal Mood Skin Exam: Warm, Dry, Intact, Normal Color, No Rash Course - Re-Assessments/Exams Free Text/Narrative Re-Assessment/Exam: Patient is a 75-year-old female presenting to the emergency department after taking her daughter's evening medications and set up her own. These medications include isosorbide 60 mg, metoprolol 25 mg, amlodipine 5 mg, primidone 150 mg, Lamictal 100 mg, and tizanidine 4 mg. On exam, patient is quite sleepy but does awaken to verbal stimuli and answers questions appropriately. Vital signs are stable, although heart rate is in the upper 40s to low 50s. Case discussed with Dr. Gordon. Unfortunate did not have any beds available in our facility, therefore we cannot admit her to observation. We will plan to watch her overnight in the emergency department to ensure that her heart rate and blood pressure maintain. I have ordered CBC, CMP, CRP, proBNP, EKG, chest x-ray. We will give her NS at 150 mils per hour 05/05/20 22:[address] Gordon. He will assume care and disposition of the pt d/t end of shift. Departure - Departure Disposition: Home, Self-Care 01 Clinical Impression: Hypotension due to drugs Ingestion, drug, inadvertent or accidental Qualifiers: Encounter type: initial encounter Qualified Code(s): T50.901A - Poisoning by unspecified drugs, medicaments and biological substances, accidental (unintentional), initial encounter - Discharge Information Instructions: Hypotension, [id number] Referrals: Augustus Patel MD [Primary Care Provider] - Forms: ED Department Discharge Additional Instructions: Evaluation in the emergency room this evening and all night secondary to accidental ingestion of your daughter's medication instead of your own. You accidentally ingested 3 medications that lower blood pressure i.e. isosorbide dinitrate 60 mg, metoprolol 25 mg and amlodipine 5 mg. This did result in transient lowering of her blood pressure to as low as 80 systolic. This required intravenous fluid infusions x2 L to restore blood pressure into the 90s. After 0400 hrs. this morning blood pressure medication effect started to dissipate and blood pressure returned to normal values of 120/58 and heart rate improved from as low as 42 to around 60/min which would be normal. It would be safe to resume your normal medications once you get home this morning. Of note you will likely feel tired and fatigued from the effect of Lamictal and primidone medications taken accidentally last evening as well. None of these medications will have a long-lasting effect. Course measures should be taken to ensure that this event cannot happen again. Sepsis Event Note (ED) - Evaluation Sepsis Screening Result: No Definite Risk <Heidi,Francis Gilberto - Last Filed: 05/06/20 06:16> Course - Vital Signs Last Recorded V/S: Last Vital Signs Temp 36.0 C L 05/05/20 20:51 Pulse 44 L 05/05/20 20:51 Resp 15 05/05/20 20:51 BP 138/64 05/05/20 20:51 Pulse Ox 95 05/05/20 20:51 - Orders/Labs/Meds Orders: Active Orders 24 hr Category Date Time Status Chest 1V Frontal [CR] Stat Exams 05/05/20 21:18 Taken Peripheral IV Insertion Adult [OM.PC] Stat Oth 05/05/20 21:15 Ordered Labs: Laboratory Tests 05/05/20 05/05/20 05/05/20 Range/Units 21:29 21:29 21:29 WBC 8.72 (3.98-10.04) K/mm3 RBC 4.02 (3.98-5.22) M/mm3 Hgb 11.7 D (11.2-15.7) gm/dl Hct 37.2 (34.1-44.9) % MCV 92.5 (79.4-94.8) fl MCH 29.1 (25.6-32.2) pg MCHC 31.5 L (32.2-35.5) g/dl RDW Std Deviation 47.3 H (36.4-46.3) fL Plt Count 250 (182-369) K/mm3 MPV 9.9 (9.4-12.3) fl Neut % (Auto) 45.5 (34.0-71.1) % Lymph % (Auto) 42.9 (19.3-51.7) % Yancey % (Auto) 8.5 (4.7-12.5) % Eos % (Auto) 2.6 (0.7-5.8) Baso % (Auto) 0.5 (0.1-1.2) % Neut # (Auto) 3.97 (1.56-6.13) K/mm3 Lymph # (Auto) 3.74 (1.18-3.74) K/mm3 Yancey # (Auto) 0.74 H (0.24-0.36) K/mm3 Eos # (Auto) 0.23 (0.04-0.36) K/mm3 Baso # (Auto) 0.04 (0.01-0.08) K/mm3 Sodium 140 (136-145) mEq/L Potassium 4.5 (3.5-5.1) mEq/L Chloride 106 (98-107) mEq/L Carbon Dioxide 28 (21-32) mEq/L Anion Gap 10.5 (5-15) BUN 27 H (7-18) mg/dL Creatinine 1.1 H (0.55-1.02) mg/dL Est Cr Clr Drug Dosing TNP Estimated GFR (MDRD) 48 (>60) mL/min BUN/Creatinine Ratio 24.5 H (14-18) Glucose 142 H (83-115) mg/dL Calcium 8.8 (8.5-10.1) mg/dL Total Bilirubin 0.2 (0.2-1.0) mg/dL AST 16 (15-37) U/L ALT 18 (14-59) U/L Alkaline Phosphatase 86 (46-116) U/L C-Reactive Protein 0.3 (<1.0) mg/dL NT-Pro-B Natriuret Pep (0-450) pg/mL Total Protein 7.1 (6.4-8.2) g/dl Albumin 3.3 L (3.4-5.0) g/dl Globulin 3.8 gm/dL Albumin/Globulin Ratio 0.9 L (1-2) SARS-CoV-2 RNA (MERLY) Negative (NEGATIVE) 05/05/20 Range/Units 21:29 WBC (3.98-10.04) K/mm3 RBC (3.98-5.22) M/mm3 Hgb (11.2-15.7) gm/dl Hct (34.1-44.9) % MCV (79.4-94.8) fl MCH (25.6-32.2) pg MCHC (32.2-35.5) g/dl RDW Std Deviation (36.4-46.3) fL Plt Count (182-369) K/mm3 MPV (9.4-12.3) fl Neut % (Auto) (34.0-71.1) % Lymph % (Auto) (19.3-51.7) % Yancey % (Auto) (4.7-12.5) % Eos % (Auto) (0.7-5.8) Baso % (Auto) (0.1-1.2) % Neut # (Auto) (1.56-6.13) K/mm3 Lymph # (Auto) (1.18-3.74) K/mm3 Yancey # (Auto) (0.24-0.36) K/mm3 Eos # (Auto) (0.04-0.36) K/mm3 Baso # (Auto) (0.01-0.08) K/mm3 Sodium (136-145) mEq/L Potassium (3.5-5.1) mEq/L Chloride (98-107) mEq/L Carbon Dioxide (21-32) mEq/L Anion Gap (5-15) BUN (7-18) mg/dL Creatinine (0.55-1.02) mg/dL Est Cr Clr Drug Dosing Estimated GFR (MDRD) (>60) mL/min BUN/Creatinine Ratio (14-18) Glucose (83-115) mg/dL Calcium (8.5-10.1) mg/dL Total Bilirubin (0.2-1.0) mg/dL AST (15-37) U/L ALT (14-59) U/L Alkaline Phosphatase (46-116) U/L C-Reactive Protein (<1.0) mg/dL NT-Pro-B Natriuret Pep 165 (0-450) pg/mL Total Protein (6.4-8.2) g/dl Albumin (3.4-5.0) g/dl Globulin gm/dL Albumin/Globulin Ratio (1-2) SARS-CoV-2 RNA (MERLY) (NEGATIVE) Meds: Medications Discontinued Medications Generic Name Dose Route Start Last Admin Trade Name Freq PRN Reason Stop Dose Admin Sodium Chloride 1,000 mls @ 150 mls/hr 05/05/20 21:28 05/05/20 23:53 Normal Saline IV 05/06/20 04:07 999 mls/hr NOW STA Infusion Sodium Chloride 500 mls @ 250 mls/hr 05/05/20 23:13 05/06/20 00:55 Normal Saline IV 05/06/20 01:12 250 mls/hr .BOLUS ONE Administration Sodium Chloride 500 mls @ 999 mls/hr 05/05/20 23:51 Normal Saline IV 05/06/20 00:21 .BOLUS ONE Sodium Chloride 10 ml 05/05/20 21:15 05/05/20 21:37 Saline Flush FLUSH 10 ml ASDIRECTED PRN Administration Keep Vein Open - Re-Assessments/Exams Free Text/Narrative Re-Assessment/Exam: 05/05/20 23:11 Care has been assumed from Lili Yoon at her time of departure from the ED. Patient is to be kept in the ED overnight for observation purposes due to accidental ingestion of her daughter`s medication instead of hers. Labs reveal a normal white count at 8.72 with auto differential showing 45% neutrophils and lymphocytes slightly elevated at 43%. Hemoglobin slightly low at 11.7 with hematocrit of 37.2 platelet count 250,000 sodium 140 with a potassium of 4.5 chloride 106 with a bicarb of 28. Anion gap is 10.5 BUN is 27 with a creatinine of 1.1 GFR is 48. Glucose 142 calcium 8.8 liver function normal C-reactive protein is 0.3 BNP is normal at 165 total protein 7.1 albumin fraction 3.3 COVID-19 screen is negative. Her blood pressure has fallen as low as 90 systolic and her cardiac function appears to be pretty close to normal with a BNP of only 165. Patient will be given a 250 mils normal saline fluid bolus. Of note her heart rate is staying in the 50s 54 to 56/min O2 sats 96% room air pressure may be dropping from accidental ingestion of Imdur 60 mg. Metoprolol does not seem to be affecting her heart rate. 05/05/20 23:51 pressure is 88/50 with sinus bradycardia 54 to 55/min O2 sats 96% room air patient will be given another 500 mils of normal saline IV bolus. 05/06/20 00:54 blood pressure is currently 94/49 with a heart rate of 58 sinus bradycardia. She has completed 750 mils of normal saline fluid bolus. Blood pressure will be kept an eye on over the next several hours due to taking accidental dose of amlodipine 5 mg metoprolol 25 mg and isosorbide dinitrate 60 mg by mouth. 05/06/20 01:20 blood pressure is now 97/49 with a heart rate of 60 and sinus. 05/06/20 03:50 blood pressure has improved to 111/59 heart rate is 63 and sinus. O2 sats 96% room air it appears that the effects of 3 different antihypertensive agents have started to diminish. Patient remains asleep due to the effect of tizanidine being very sedating as well as the Lamictal that she took. We will leave her alone until after 0700 hrs. with a plan to awaken her and allow her to go home once she can walk and talk normally. 05/06/20 05:11 vital signs continue to improve with blood pressure now 120/58 and heart rate of 61 and sinus. O2 sats 96% on room air it appears that most of the effect of blood pressure lowering agent such as Imdur 60 mg amlodipine 5 mg and metoprolol 25 mg have started to dissipate. Tentatively the patient will be able to be discharged home later this morning at a more suitable hour Departure - Departure Time of Disposition: 05:55 Condition: Fair - Discharge Information *PRESCRIPTION DRUG MONITORING PROGRAM REVIEWED*: Not Applicable *COPY OF PRESCRIPTION DRUG MONITORING REPORT IN PATIENT JESSE: Not Applicable Sepsis Event Note (ED) - Focused Exam Vital Signs: Vital Signs Temp Pulse Resp BP Pulse Ox 05/05/20 20:51 36.0 C L 44 L 15 138/64 95
[2020-05-05] MEDS ORDERED: Sodium Chloride 0.9% 1,000 ML IV STA (21:28)
[2020-05-05] MEDS ORDERED: Sodium Chloride 0.9% 500 ML IV ONE ×2 (23:13→23:51)
--- NOTE | 2020-05-06 09:37 | CR ---
Chest: Portable view of the chest was obtained. Comparison: Prior chest x-ray of 08/26/16. Heart size and mediastinum are within normal limits for portable technique. Lungs are clear with no acute parenchymal change. No acute bony abnormality is appreciated. Scoliosis is noted within the spine. Impression: 1. Nothing acute is seen on portable chest x-ray. Diagnostic code #1
== END 2020-05-06 05:57 | disposition home or self-care (01) ==
LOC: JD.ED 20:37
DX: I95.2 Hypotension due to drugs (principal); E78.00 Pure hypercholesterolemia, unspecified; I10 Essential (primary) hypertension; Z79.899 Other long term (current) drug therapy; T46.5X5A Adverse effect of other antihypertensive drugs, initial encounter; Z20.822 Contact with and (suspected) exposure to COVID-19
CPT/HCPCS: 36415; 71045; 80053; 83880; 85025; 86140; 93005; 99284; J7030; U0002

== ENCOUNTER 2023-07-28 09:52 | Emergency (ER) | payer MEDICARE ==
[2023-07-28 10:28] LABS: BASOPHILS PERCENT AUTO 0.6 % (0.0-1.0); EOSINOPHILS ABSOLUTE AUTO 0.1 K/mm3 (0.0-0.4); EOSINOPHILS PERCENT AUTO 0.8 % (0.0-6.0); HEMATOCRIT 41.6 % (37.0-47.0); HEMOGLOBIN 13.5 gm/dl (12.0-16.0); IMMATURE GRAN ABSOLUTE AUTO 0.02 K/mm3 (0.00-0.05); IMMATURE GRAN PERCENT AUTO 0.3 % (0.0-0.4); LYMPHOCYTES ABSOLUTE AUTO 2.7 K/mm3 (1.0-4.8); LYMPHOCYTES PERCENT AUTO 38.8 % (24.0-44.0); MEAN CORPUSCULAR HEMOGLOBIN 30.5 pg (28.0-32.0); MEAN CORPUSCULAR HGB CONC 32.5 g/dl (32.0-36.0); MEAN CORPUSCULAR VOLUME 93.9 fl (83.0-99.0); MEAN PLATELET VOLUME 9.8 fl (9.4-12.3); MONOCYTES ABSOLUTE AUTO 0.8 K/mm3 (0.0-0.8); MONOCYTES PERCENT AUTO 11.2 % (0.0-8.0); NEUTROPHILS ABSOLUTE AUTO 3.4 K/mm3 (1.8-7.7); NEUTROPHILS PERCENT AUTO 48.3 % (41.0-71.0); PLATELET COUNT,PLT 178 K/mm3 (150-400); RED BLOOD CELL COUNT 4.43 M/mm3 (4.10-5.30); WHITE BLOOD CELL COUNT,WBC 7.07 K/mm3 (3.9-11.3)
[2023-07-28 10:57] LABS: CORONAVIRUS COVID-19 NAA NEGATIVE (NEGATIVE); INFLUENZA A NAA NEGATIVE (NEGATIVE); RESPIRATORY SYNCYTIAL VIR NAA POSITIVE (NEGATIVE)
[2023-07-28 11:15] LABS: A/G RATIO 0.9 (1-2); ALBUMIN 3.8 g/dl (3.4-5.0); BILIRUBIN TOTAL 0.4 mg/dL (0.2-1.0); CALCIUM 8.9 mg/dL (8.5-10.1); CREATININE 1.1 mg/dL (0.55-1.02); EST CRCL DRUG DOSING (CG) 29.79 mL/min; MAGNESIUM 1.9 mg/dL (1.8-2.4)
[2023-07-28 12:27] VITALS: BP 120/75; PULSE 74
== END 2023-07-28 11:45 | disposition home or self-care (01) ==
LOC: JD.ED 09:52
DX: J21.0 Acute bronchiolitis due to respiratory syncytial virus (principal); E78.00 Pure hypercholesterolemia, unspecified; I10 Essential (primary) hypertension; Z79.899 Other long term (current) drug therapy
CPT/HCPCS: 0241U; 36415; 71046; 80053; 83735; 85025; 99283

== ENCOUNTER 2023-10-30 12:58 | Emergency (ER) | payer MEDICARE ==
[2023-10-30 14:10] LABS: BASOPHILS PERCENT AUTO 0.5 % (0.0-1.0); EOSINOPHILS PERCENT AUTO 0.4 % (0.0-6.0); HEMATOCRIT 41.6 % (37.0-47.0); IMMATURE GRAN ABSOLUTE AUTO 0.02 K/mm3 (0.00-0.05); IMMATURE GRAN PERCENT AUTO 0.2 % (0.0-0.4); LYMPHOCYTES ABSOLUTE AUTO 3.7 K/mm3 (1.0-4.8); LYMPHOCYTES PERCENT AUTO 43.2 % (24.0-44.0); MEAN CORPUSCULAR HGB CONC 31.3 g/dl (32.0-36.0); MEAN CORPUSCULAR VOLUME 95.9 fl (83.0-99.0); MEAN PLATELET VOLUME 9.6 fl (9.4-12.3); MONOCYTES ABSOLUTE AUTO 0.8 K/mm3 (0.0-0.8); MONOCYTES PERCENT AUTO 9.7 % (0.0-8.0); NEUTROPHILS ABSOLUTE AUTO 3.9 K/mm3 (1.8-7.7); PLATELET COUNT,PLT 197 K/mm3 (150-400); RED BLOOD CELL COUNT 4.34 M/mm3 (4.10-5.30); WHITE BLOOD CELL COUNT,WBC 8.45 K/mm3 (3.9-11.3)
[2023-10-30 14:34] LABS: APPEARANCE,URINE CLEAR (Clear); BILIRUBIN,URINE NEGATIVE (Negative); COLOR,URINE YELLOW (Yellow); GLUCOSE,URINE NEGATIVE (Negative); KETONES,URINE NEGATIVE (Negative); LEUKOCYTE ESTERASE,URINE NEGATIVE (Negative); NITRITE,URINE NEGATIVE (Negative); OCCULT BLOOD,URINE NEGATIVE (Negative); PH,URINE 5.5 (5.0-8.0); PROTEIN,URINE NEGATIVE (Negative); UROBILINOGEN,URINE 0.2 (0.2-1.0)
[2023-10-30 14:35] LABS: A/G RATIO 0.9 (1-2); ALBUMIN 3.6 g/dl (3.4-5.0); ANION GAP 13.5 (5-15); BILIRUBIN TOTAL 0.4 mg/dL (0.2-1.0); BUN/CREATININE RATIO 19.3 (14-18); CALCIUM 8.8 mg/dL (8.5-10.1); CREATININE 1.5 mg/dL (0.55-1.02); EST CRCL DRUG DOSING (CG) 21.84 mL/min; POTASSIUM,K 3.5 mEq/L (3.5-5.1); PROTEIN TOTAL,TP 7.8 g/dl (6.4-8.2)
[2023-10-30 19:31] VITALS: BP 110/74; PULSE 80
== END 2023-10-30 15:40 | disposition home or self-care (01) ==
LOC: JD.ED 12:58
DX: B02.9 Zoster without complications (principal); I10 Essential (primary) hypertension; E78.00 Pure hypercholesterolemia, unspecified; Z79.899 Other long term (current) drug therapy
CPT/HCPCS: 36415; 80053; 81003; 85025; 99283; 99284